=== PATIENT | male | born 1990 | race African-American/Black ===

== ENCOUNTER → 2016-06-04 | Outpatient (CLI) | payer OTHER ==
--- NOTE | 2016-06-04 08:52 | US ---
EXAMINATION TYPE: US abdomen complete DATE OF EXAM: 06/04/2016 8:32 AM COMPARISON: In pacs CT abdomen pelvis July 13, 2015 CLINICAL HISTORY: Elevated liver enzymes, occasional abdomen pain, obese patient. EXAM MEASUREMENTS: Liver Length: 16.8cm Gallbladder Wall: 0.2cm CBD: 0.4cm Spleen: 11.5cm Right Kidney: 10.5 x 5.2 x 5.8cm Left Kidney: 11.2 x 5.9 x 5.6cm TECHNOLOGIST IMPRESSION: Pancreas: obscured by overlying bowel gas Liver: Heterogeneously hyperechoic without intrahepatic ductal dilatation. Evaluation for focal blanca s is limited due to the heterogeneity. Gallbladder: wnl Evidence for sonographic Soliman's sign: no CBD: wnl Spleen: 1.7 x 1.2 x 1.6cm hypoechoic area isoechoic inferior to spleen presumed small splenule. C orrelates with CT. Right Kidney: wnl Left Kidney: visualized portions wnl, inferior pole limited by overlying bowel gas Upper IVC: wnl Abd Aorta: visualized portions wnl, mid and distal portions obscured by overlying bowel gas IMPRESSION: Suboptimal study, marked fatty infiltration of liver is redemonstrated which correlates w ith prior CT. Normal Values: Liver Length: < 16cm wnl, 17-18cm upper limits, >18cm enlarged Spleen Length = < 13cm Renal Length = 9 - 12cm GB Wall: < 0.3cm CBD: < 0.6cm or < 1.0cm post cholecystectomy
== END | disposition home or self-care (01) ==
LOC: RADUSWWP 07:54
PROVIDERS: ATTEND Family Medicine
DX: K76.0 Fatty (change of) liver, not elsewhere classified (principal)
CPT/HCPCS: 76700

== ENCOUNTER 2016-06-20 20:41 | Emergency (ER) | payer OTHER ==
[2016-06-20] MEDS ORDERED: KETOROLAC 30 MG/ML 1 ML VIAL IVP STA (21:19)
[2016-06-20] MEDS ORDERED: FAMOTIDINE 20 MG/2 ML VIAL IV STA (21:19)
[2016-06-20] MEDS ORDERED: ONDANSETRON 4 MG/2 ML VIAL IVP STA (21:19)
[2016-06-20] MEDS ORDERED: DICYCLOMINE 10 MG/ML 2 ML AMP IM STA (21:19)
[2016-06-20] MEDS ORDERED: SODIUM CHLORIDE 0.9% 1,000 ML IV STA (21:20)
--- NOTE | 2016-06-20 21:26 | ED ---
Nausea/Vomiting/Diarrhea HPI - General Chief complaint: Nausea/Vomiting/Diarrhea Stated complaint: NVD Time Seen by Provider: 06/20/16 21:08 Source: patient Mode of arrival: ambulatory Limitations: no limitations - History of Present Illness Initial comments: Patient is a 26-year-old male with history of diabetes presenting with nausea/ vomiting/diarrhea. Patient states this started last night. Patient has had 4 episodes of vomiting. He describes the vomiting as food in nature. Patient also having diarrhea; he describes 6 episodes of loose watery stool. Patient admits to sick contacts in the house. Patient was recently on a [employer] for upper resp infection. Patient denies travel. Patient does have concerned suspicious food. Patient admits to having raw sewage in his basement which they cleaned up. He denies fever, chills, chest pain, shortness breath. - Related Data Home Medications Medication Instructions Recorded Confirmed Aspirin EC [Ecotrin Low Dose] 81 mg PO HS 05/02/16 06/20/16 INSULIN LISPRO (humaLOG) [humaLOG See Protocol SQ AC-TID 05/02/16 06/20/16 (formulary)] Insulin Glargine [Lantus] 40 unit SQ HS 05/02/16 06/20/16 metFORMIN HCL 1,000 mg PO BID 05/02/16 06/20/16 Azithromycin [Zithromax Z-pack] See Taper PO DAILY 06/20/16 06/20/16 Previous Rx's Medication Instructions Recorded Atorvastatin Calcium [Lipitor] 20 mg PO DAILY #30 tab 07/14/15 Lisinopril [Zestril] 10 mg PO DAILY #30 tab 07/14/15 Doxycycline Monohydrate [Monodox] 100 mg PO Q12HR #28 cap 06/21/16 Allergies Allergy/AdvReac Type Severity Reaction Status Date / Time No Known Allergies Allergy Verified 06/20/16 22:09 Review of Systems ROS Statement: Those systems with pertinent positive or pertinent negative responses have been documented in the HPI. Constitutional: No fever and no chills. HENT: No congestion, no rhinorrhea and no sore throat. Eyes: No discharge and no redness. Respiratory: No cough and no shortness of breath. Cardiovascular: No chest pain and no palpitations. Gastrointestinal: +nausea, +vomiting, no abdominal pain and +diarrhea. Genitourinary: No dysuria and no hematuria. Musculoskeletal: No back pain and no arthralgias. Skin: No pallor and no rash. Neurological: No dizziness and No headaches. ROS Other: All systems not noted in ROS Statement are negative. Past Medical History Past Medical History: Diabetes Mellitus, Hypertension History of Any Multi-Drug Resistant Organisms: None Reported Past Surgical History: No Surgical Hx Reported Past Anesthesia/Blood Transfusion Reactions: No Reported Reaction Past Psychological History: No Psychological Hx Reported Smoking Status: Never smoker Past Alcohol Use History: None Reported Past Drug Use History: None Reported - Past Family History Father History Unknown: Yes General Exam - General Exam Comments Initial Comments: Constitutional: Patient appears well-developed and well-nourished. Warm to touch. Head: Normocephalic and atraumatic. Eyes: Conjunctivae and EOM are normal. Right eye exhibits no discharge. Left eye exhibits no discharge. +scleral icterus. Neck: Normal range of motion. Neck supple. Cardiovascular: Tachycardia. No murmur heard. Pulmonary/Chest: Effort normal and breath sounds normal. No respiratory distress. No wheezes. Abdominal: Soft. No distension. Diffuse tenderness. There is no rebound and no guarding. Musculoskeletal: Normal range of motion. No edema or tenderness. Neurological: Patient alert and oriented to person, place, and time. Skin: Skin is warm and dry. Not diaphoretic. Nursing notes and vitals reviewed. Limitations: no limitations Course Vital Signs 06/20/16 20:46 Temperature 101 F H Pulse Rate 122 H Respiratory 20 Rate Blood Pressure 123/68 O2 Sat by Pulse 98 Oximetry - Reevaluation(s) Reevaluation #1: 06/21/16 00:34 Patient with girlfriend at bedside and asked if we could disclose information with her present. Patient was given multiple opportunities to have discussion alone. Patient states it was okay to discuss results from his girlfriend. Discussed results with patient as concern for hepatitis A given raw sewage and nausea/vomiting/diarrhea with jaundice. Hepatitis panel was added to his blood work and he will follow-up on that. Patient also has concern for urinary tract infection with a history of STI's in the past. Patient is agreeable to STI prophylaxis. Urine culture, gonorrhea and chlamydia added onto lab results. He will follow up with. Medical Decision Making - Medical Decision Making Patient is a 26-year-old male presenting present with nausea/vomiting/diarrhea. Patient has risk factors of cleaning up raw sewage in his basement, recent antibiotics, sick contacts. Patient does exhibit jaundice of his eyes. Symptoms improved with normal saline, Zofran, Bentyl, Pepcid. Laboratory showed a hypomagnesemia which was replaced orally.CBC was unremarkable. Glucose was normal. Patient had a T bili of 3.1. With mild elevation of his ALT at 93. Patient states he's had elevations in the past which he's had ultrasounds. UA concerning for urinary tract infection. Prior urinalysis showed he has been positive for chlamydia. Unsure patient was treated. Patient is accepting of STI prophylaxis. We'll treat patient with doxycycline outpatient. Patient will follow up on hepatitis panel, urine culture, urine gonorrhea, and chlamydia. Prior to discharge, patient was resting comfortably in bed. Course of stay improved. Denies pain. Discussed physical exam and diagnostic tests with patient. Questions answered and patient is agreeable to discharge with close follow up with Primary Care Physician. Instructed to return to Emergency Department if symptoms worsen. - Lab Data Result diagrams: 06/20/16 22:31 06/20/16 22:31 Lab Results 06/20/16 06/20/16 06/20/16 Range/Units 22:15 22:18 22:31 WBC 7.4 (3.8-10.6) k/uL RBC 5.27 (4.30-5.90) m/uL Hgb 15.7 (13.0-17.5) gm/dL Hct 46.2 (39.0-53.0) % MCV 87.7 (80.0-100.0) fL MCH 29.9 (25.0-35.0) pg MCHC 34.1 (31.0-37.0) g/dL RDW 12.7 (11.5-15.5) % Plt Count 194 (150-450) k/uL Neutrophils % 77 % Lymphocytes % 13 % Monocytes % 5 % Eosinophils % 3 % Basophils % 0 % Neutrophils # 5.7 (1.3-7.7) k/uL Lymphocytes # 1.0 (1.0-4.8) k/uL Monocytes # 0.4 (0-1.0) k/uL Eosinophils # 0.2 (0-0.7) k/uL Basophils # 0.0 (0-0.2) k/uL Sodium (137-145) mmol/L Potassium (3.5-5.1) mmol/L Chloride (98-107) mmol/L Carbon Dioxide (22-30) mmol/L Anion Gap mmol/L BUN (9-20) mg/dL Creatinine (0.66-1.25) mg/dL Est GFR (MDRD) Af Amer (>60 ml/min/1.73 sqM) Est GFR (MDRD) Non-Af (>60 ml/min/1.73 sqM) Glucose (74-99) mg/dL POC Glucose (mg/dL) 95 (75-99) mg/dL POC Glu Internet Specialist ID Katie Ahmadi Calcium (8.4-10.2) mg/dL Magnesium (1.6-2.3) mg/dL Total Bilirubin (0.2-1.3) mg/dL AST (17-59) U/L ALT (21-72) U/L Alkaline Phosphatase (38-126) U/L Total Protein (6.3-8.2) g/dL Albumin (3.5-5.0) g/dL Lipase (23-300) U/L Urine Color Yellow Urine Appearance Clear (Clear) Urine pH 5.5 (5.0-8.0) Ur Specific [place] 1.025 (1.001-1.035) Urine Protein Trace H (Negative) Urine Glucose (UA) Negative (Negative) Urine Ketones Negative (Negative) Urine Blood Negative (Negative) Urine Nitrate Negative (Negative) Urine Bilirubin Negative (Negative) Urine Urobilinogen <2.0 (<2.0) mg/dL Ur Leukocyte Esterase Small H (Negative) Urine RBC 1 (0-5) /hpf Urine WBC 27 H (0-5) /hpf Urine WBC Clumps Rare H (None) /hpf Ur Squamous Epith Cells 3 (0-4) /hpf Amorphous Sediment Rare H (None) /hpf Urine Mucus Occasional H (None) /hpf 06/20/16 Range/Units 22:31 WBC (3.8-10.6) k/uL RBC (4.30-5.90) m/uL Hgb (13.0-17.5) gm/dL Hct (39.0-53.0) % MCV (80.0-100.0) fL MCH (25.0-35.0) pg MCHC (31.0-37.0) g/dL RDW (11.5-15.5) % Plt Count (150-450) k/uL Neutrophils % % Lymphocytes % % Monocytes % % Eosinophils % % Basophils % % Neutrophils # (1.3-7.7) k/uL Lymphocytes # (1.0-4.8) k/uL Monocytes # (0-1.0) k/uL Eosinophils # (0-0.7) k/uL Basophils # (0-0.2) k/uL Sodium 137 (137-145) mmol/L Potassium 3.7 (3.5-5.1) mmol/L Chloride 102 (98-107) mmol/L Carbon Dioxide 21 L (22-30) mmol/L Anion Gap 14 mmol/L BUN 9 (9-20) mg/dL Creatinine 0.91 (0.66-1.25) mg/dL Est GFR (MDRD) Af Amer >60 (>60 ml/min/1.73 sqM) Est GFR (MDRD) Non-Af >60 (>60 ml/min/1.73 sqM) Glucose 105 H (74-99) mg/dL POC Glucose (mg/dL) (75-99) mg/dL POC Glu Internet Specialist ID Calcium 8.6 (8.4-10.2) mg/dL Magnesium 1.5 L (1.6-2.3) mg/dL Total Bilirubin 3.1 H (0.2-1.3) mg/dL AST 27 (17-59) U/L ALT 93 H (21-72) U/L Alkaline Phosphatase 46 (38-126) U/L Total Protein 7.0 (6.3-8.2) g/dL Albumin 4.2 (3.5-5.0) g/dL Lipase 26 (23-300) U/L Urine Color Urine Appearance (Clear) Urine pH (5.0-8.0) Ur Specific [place] (1.001-1.035) Urine Protein (Negative) Urine Glucose (UA) (Negative) Urine Ketones (Negative) Urine Blood (Negative) Urine Nitrate (Negative) Urine Bilirubin (Negative) Urine Urobilinogen (<2.0) mg/dL Ur Leukocyte Esterase (Negative) Urine RBC (0-5) /hpf Urine WBC (0-5) /hpf Urine WBC Clumps (None) /hpf Ur Squamous Epith Cells (0-4) /hpf Amorphous Sediment (None) /hpf Urine Mucus (None) /hpf Disposition Clinical Impression: Jaundice, Concern about STD in male without diagnosis, Nausea vomiting and diarrhea, Hypomagnesemia Disposition: HOME SELF-CARE Condition: Good Instructions: Acute Nausea and Vomiting (ED), Acute Diarrhea (ED) Prescriptions: Doxycycline Monohydrate [Monodox] 100 mg PO Q12HR #28 cap Referrals: Soumya Petty MD [Primary Care Provider] - 1-2 days
[2016-06-20] MEDS: SODIUM CHLORIDE 0.9% 1,000 ML IV STA (22:08)
[2016-06-20 22:20] LABS: Glucose,Whole Blood 95 mg/dL (75-99)
[2016-06-20 22:48] LABS: Basophils % (A) 0 %; CH 30.1; CHCM 34.5; Eosinophils # (A) 0.2 k/uL (0-0.7); Eosinophils % (A) 3 %; HCT 46.2 % (39.0-53.0); HDW 2.91; HGB 15.7 gm/dL (13.0-17.5); Luc # (Auto) 0.07; Luc % (Auto) 1; Lymphocytes % (A) 13 %; MCH 29.9 pg (25.0-35.0); MCHC 34.1 g/dL (31.0-37.0); MCV 87.7 fL (80.0-100.0); Mean Platelet Volume 7.9; Monocytes # (A) 0.4 k/uL (0-1.0); Monocytes % (A) 5 %; Neutrophils # (A) 5.7 k/uL (1.3-7.7); Neutrophils % (A) 77 %; RBC 5.27 m/uL (4.30-5.90); RDW 12.7 % (11.5-15.5); WBC 7.4 k/uL (3.8-10.6); WBC (Perox) 7.33
[2016-06-20 22:49] LABS: Amorphous Sediment,Urine Rare /hpf; Appearance,Urine Clear (Clear); Bilirubin,Urine Negative (Negative); Glucose,Urine (UA) Negative (Negative); Ketones,Urine Negative (Negative); Leukocyte Esterase,Urine Small (Negative); Mucus,Urine Occasional /hpf; Nitrite,Urine Negative (Negative); PH, Urine 5.5 (5.0-8.0); Particle Count 3475; Protein,Urine Trace (Negative); RBC,Urine 1 /hpf (0-5); Specific Gravity,Urine 1.025 (1.001-1.035); Squamous Epithelial Cell,Urine 3 /hpf (0-4); UA Billing (MACRO vs. MICRO) MICRO; Urobilinogen,Urine <2.0 mg/dL (<2.0); WBC,Urine 27 /hpf (0-5)
[2016-06-20 22:55] LABS: ALT 93 U/L (21-72); AST 27 U/L (17-59); Alkaline Phosphatase 46 U/L (38-126); Anion Gap 14 mmol/L; Blood Urea Nitrogen 9 mg/dL (9-20); Calcium 8.6 mg/dL (8.4-10.2); Carbon Dioxide 21 mmol/L (22-30); Chloride 102 mmol/L (98-107); Glucose 105 mg/dL (74-99); Magnesium 1.5 mg/dL (1.6-2.3); Non-African American GFR(MDRD) >60 (>60 ml/min/1.73 sqM); Potassium 3.7 mmol/L (3.5-5.1); Sodium 137 mmol/L (137-145); Total Bilirubin 3.1 mg/dL (0.2-1.3)
[2016-06-21] MEDS ORDERED: MAGNESIUM OXIDE 400 MG TAB PO STA (00:21)
[2016-06-21] MEDS ORDERED: AZITHROMYCIN 500 MG TAB PO STA (00:31)
[2016-06-21] MEDS ORDERED: cefTRIAXone 250 MG VIAL IM STA (00:31)
[2016-06-21 01:32] VITALS: BP 116/72; PULSE 82; RESP 18; TEMP 96.5
[2016-06-21 05:50] LABS: Hepatitis B Surface Ag Index 0.05
[2016-06-21 05:56] LABS: Hepatitis B Core IgM Index 0.03
[2016-06-21 06:07] LABS: Hepatitis C Virus IgG Index 0.03
[2016-06-21 06:11] LABS: Hepatitis C Virus IgG Ab Negative (Negative)
== END 2016-06-21 01:31 | disposition home or self-care (01) ==
LOC: EC 20:41
DX: R11.2 Nausea with vomiting, unspecified (principal); R19.7 Diarrhea, unspecified; R17 Unspecified jaundice; E83.42 Hypomagnesemia; E11.9 Type 2 diabetes mellitus without complications; Z79.82 Long term (current) use of aspirin; Z79.4 Long term (current) use of insulin; Z79.84 Long term (current) use of oral hypoglycemic drugs; Z77.111 Contact with and (suspected) exposure to water pollution
CPT/HCPCS: 36415; 80053; 83690; 83735; 85025; 81001; 96372 ×2; 96374; 96375 ×2; 96361 ×2; 99284; J0500; J2405; J1885; 80074; 87086; 87491; 87591

== ENCOUNTER 2018-07-03 07:33 | Emergency (ER) | payer OTHER ==
--- NOTE | 2018-07-03 08:25 | ED ---
Chest Pain HPI - General Chief Complaint: Chest Pain Stated Complaint: CHEST PAIN Time Seen by Provider: 07/03/18 07:57 Source: patient Mode of arrival: ambulatory Limitations: no limitations - History of Present Illness MD Complaint: chest pain (Left-sided chest heaviness) -: days(s) (3) Onset: during rest, awoke with symptoms Pain Location: left chest Pain Radiation: none Severity: mild Severity scale (1-10): 3 Quality: tightness, heaviness Consistency: constant, now resolved Improves With: nothing Worsens With: nothing Anginal Symptoms: other (None) Other Symptoms: other (none) Treatments Prior to Arrival: none - Related Data Home Medications Medication Instructions Recorded Confirmed Aspirin EC [Ecotrin Low Dose] 81 mg PO HS 05/02/16 07/03/18 INSULIN LISPRO (humaLOG) [humaLOG] See Protocol SQ AC-TID 05/02/16 07/03/18 Insulin Glargine [Lantus] 64 unit SQ HS 05/02/16 07/03/18 Diabetic Otc Vitamin Pack 1 pack PO DAILY 07/03/18 07/03/18 Multivitamins, Thera [Multivitamin 1 tab PO DAILY 07/03/18 07/03/18 (formulary)] [place]-3 Fatty Acids/Fish Oil [Fish 1 cap PO DAILY 07/03/18 07/03/18 Oil 1,000 mg Softgel] Previous Rx's Medication Instructions Recorded Lisinopril [Zestril] 10 mg PO DAILY #30 tab 07/14/15 Allergies Allergy/AdvReac Type Severity Reaction Status Date / Time No Known Allergies Allergy Verified 07/03/18 07:55 Review of Systems ROS Statement: Those systems with pertinent positive or pertinent negative responses have been documented in the HPI. ROS Other: All systems not noted in ROS Statement are negative. EKG Findings - EKG Comments: EKG Findings:: EKG shows normal sinus rhythm rate of 74, ID 144, QRS 86, QTc 395 Past Medical History Past Medical History: Diabetes Mellitus, Hypertension History of Any Multi-Drug Resistant Organisms: None Reported Past Surgical History: No Surgical Hx Reported Past Anesthesia/Blood Transfusion Reactions: No Reported Reaction Past Psychological History: No Psychological Hx Reported Smoking Status: Never smoker Past Alcohol Use History: None Reported Past Drug Use History: None Reported - Past Family History Father History Unknown: Yes General Exam Limitations: no limitations General appearance: alert, in no apparent distress Head exam: Present: atraumatic, normocephalic, normal inspection Eye exam: Present: normal appearance, PERRL, EOMI. Absent: scleral icterus, conjunctival injection, periorbital swelling ENT exam: Present: normal exam, mucous membranes moist Neck exam: Present: normal inspection. Absent: tenderness, meningismus, lymphadenopathy Respiratory exam: Present: normal lung sounds bilaterally. Absent: respiratory distress, wheezes, rales, rhonchi, stridor Cardiovascular Exam: Present: regular rate, normal rhythm, normal heart sounds. Absent: systolic murmur, diastolic murmur, rubs, gallop, clicks GI/Abdominal exam: Present: soft, normal bowel sounds. Absent: distended, tenderness, guarding, rebound, rigid Extremities exam: Present: normal inspection, full ROM, normal capillary refill. Absent: tenderness, pedal edema, joint swelling, calf tenderness Back exam: Present: normal inspection Neurological exam: Present: alert, oriented X3, CN II-XII intact Psychiatric exam: Present: normal affect, normal mood Skin exam: Present: warm, dry, intact, normal color. Absent: rash Course Vital Signs 07/03/18 07/03/18 07/03/18 07:38 08:16 08:30 Temperature 98 F Pulse Rate 73 77 88 Respiratory 18 15 19 Rate Blood Pressure 109/74 126/89 O2 Sat by Pulse 99 96 96 Oximetry 07/03/18 09:44 Temperature 97.9 F Pulse Rate 80 Respiratory 16 Rate Blood Pressure 125/91 O2 Sat by Pulse 97 Oximetry Disposition Clinical Impression: Chest pain Disposition: HOME SELF-CARE Condition: Good Instructions (If sedation given, give patient instructions): Chest Pain (ED) Is patient prescribed a controlled substance at d/c from ED?: No Referrals: Olive Becker MD [Primary Care Provider] - 1-2 days
[2018-07-03] MEDS: SODIUM CHLORIDE 0.9% 500 ML 500 ML IV STA (08:26)
[2018-07-03] MEDS: SODIUM CHLORIDE 0.9% 1,000 ML IV STA (08:26)
--- NOTE | 2018-07-03 08:51 | XR ---
EXAMINATION TYPE: XR chest 2V DATE OF EXAM: 07/03/2018 COMPARISON: 03/10/2017 HISTORY: Chest pain for 2 days TECHNIQUE: Frontal and lateral views of the chest are obtained. FINDINGS: There is no focal air space opacity, pleural effusion, or pneumothorax seen. The cardiac silhouette size is upper limits of normal in size. The osseous structures are intact. Mild multilev el degenerative change of the thoracic spine is seen. IMPRESSION: No acute cardiopulmonary process.
[2018-07-03 08:54] LABS: Basophils % (A) 1 %; Eosinophils # (A) 0.2 k/uL (0-0.7); Eosinophils % (A) 3 %; HCT 47.3 % (39.0-53.0); HGB 15.8 gm/dL (13.0-17.5); Lymphocytes % (A) 35 %; MCH 29.2 pg (25.0-35.0); MCHC 33.3 g/dL (31.0-37.0); MCV 87.5 fL (80.0-100.0); Monocytes # (A) 0.3 k/uL (0-1.0); Monocytes % (A) 6 %; Neutrophils # (A) 3.1 k/uL (1.3-7.7); Neutrophils % (A) 54 %; Platelet Count 187 k/uL (150-450); RDW 12.7 % (11.5-15.5); WBC 5.7 k/uL (3.8-10.6)
[2018-07-03 09:07] LABS: Partial Thromboplastin Time 24.8 sec (22.0-30.0); Prothrombin Time 10.7 sec (9.0-12.0)
[2018-07-03 09:08] LABS: ALT 69 U/L (21-72); AST 27 U/L (17-59); Albumin 4.2 g/dL (3.5-5.0); Alkaline Phosphatase 60 U/L (38-126); Anion Gap 9 mmol/L; Blood Urea Nitrogen 12 mg/dL (9-20); Calcium 9.4 mg/dL (8.4-10.2); Carbon Dioxide 24 mmol/L (22-30); Chloride 107 mmol/L (98-107); Glucose 205 mg/dL (74-99); Lipase 53 U/L (23-300); Magnesium 1.9 mg/dL (1.6-2.3); Potassium 4.6 mmol/L (3.5-5.1); Sodium 140 mmol/L (137-145); Total Bilirubin 1.8 mg/dL (0.2-1.3); Total Protein 6.9 g/dL (6.3-8.2)
[2018-07-03 09:10] LABS: D-Dimer <0.17 mg/L FEU (<0.60)
[2018-07-03 09:24] LABS: Creatine Kinase 244 U/L (55-170)
[2018-07-03 09:37] LABS: Creatine Kinase MB 0.8 ng/mL (0.0-2.4); Troponin I <0.012 ng/mL (0.000-0.034)
[2018-07-03 09:45] VITALS: BP 125/91; PULSE 80; RESP 16; TEMP 97.9
[2018-07-03] MEDS: MORPHINE SULFATE 4 MG/ML SYRINGE IV STA (09:59)
[2018-07-03] MEDS: KETOROLAC 30 MG/ML 1 ML VIAL IVP STA (09:59)
== END 2018-07-03 09:50 | disposition home or self-care (01) ==
LOC: EC 07:33
DX: R07.89 Other chest pain (principal); E11.9 Type 2 diabetes mellitus without complications; I10 Essential (primary) hypertension; Z79.4 Long term (current) use of insulin; Z79.899 Other long term (current) drug therapy; Z79.82 Long term (current) use of aspirin; Z53.29 Procedure and treatment not carried out because of patient's decision for other reasons
CPT/HCPCS: 36415; 71046; 80053; 82550; 82553; 83690; 83735; 83880; 84484; 85025; 85379; 85610; 85730; 96360; 99285

== ENCOUNTER 2018-08-14 16:45 | Emergency (ER) | payer OTHER ==
[2018-08-14 16:55] VITALS: BP 159/107; PULSE 82; RESP 16; TEMP 97.4
--- NOTE | 2018-08-14 17:26 | ED ---
General Adult HPI - General Chief complaint: Urogenital Stated complaint: poss pulled muscle-[facility] Time Seen by Provider: 08/14/18 16:50 Source: patient Mode of arrival: ambulatory Limitations: no limitations - History of Present Illness Initial comments: 28-year-old male patient passed no history of diabetes, hypertension presents to ED for evaluation of possible muscular skeletal strain. 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 Patient additionally complains of some right inguinal strain. Patient reports that he has pain in this region with range of motion, exertion. She denies any pain at rest. Patient denies any other complaints. Patient denies any nausea vomiting diarrhea, fevers chills, any other symptoms. Systemic: Pt denies fatigue, fever/chills, rash. Pt denies weakness, night sweats, weight loss. Neuro: Pt denies headache, visual disturbances, syncope or pre-syncope. HEENT: Pt denies ocular discharge or irritation, otalgia, rhinorrhea, pharyngitis or notable lymphadenopathy. Cardiopulmonary: Pt denies chest pain, SOB, heart palpitations, dyspnea on exertion. Abdominal/GI: Pt denies abdominal pain, n/v/d. : Pt denies dysuria, burning w/ urination, frequency/urgency. Denies new onset urinary or bowel incontinence. MSK: Pt denies myalgia, loss of strength or function in extremities. Neuro: Pt denies new onset weakness, paresthesias. - Related Data Home Medications Medication Instructions Recorded Confirmed Aspirin EC [Ecotrin Low Dose] 81 mg PO HS 05/02/16 07/03/18 INSULIN LISPRO (humaLOG) [humaLOG] See Protocol SQ AC-TID 05/02/16 07/03/18 Insulin Glargine [Lantus] 64 unit SQ HS 05/02/16 07/03/18 Diabetic Otc Vitamin Pack 1 pack PO DAILY 07/03/18 07/03/18 Multivitamins, Thera [Multivitamin 1 tab PO DAILY 07/03/18 07/03/18 (formulary)] [place]-3 Fatty Acids/Fish Oil [Fish 1 cap PO DAILY 07/03/18 07/03/18 Oil 1,000 mg Softgel] Previous Rx's Medication Instructions Recorded Lisinopril [Zestril] 10 mg PO DAILY #30 tab 07/14/15 Allergies Allergy/AdvReac Type Severity Reaction Status Date / Time No Known Allergies Allergy Verified 08/14/18 16:54 Review of Systems ROS Statement: Those systems with pertinent positive or pertinent negative responses have been documented in the HPI. ROS Other: All systems not noted in ROS Statement are negative. Past Medical History Past Medical History: Diabetes Mellitus, Hypertension History of Any Multi-Drug Resistant Organisms: None Reported Past Surgical History: No Surgical Hx Reported Past Anesthesia/Blood Transfusion Reactions: No Reported Reaction Past Psychological History: No Psychological Hx Reported Smoking Status: Never smoker Past Alcohol Use History: None Reported Past Drug Use History: None Reported - Past Family History Father History Unknown: Yes General Exam - General Exam Comments Initial Comments: Constitutional: NAD, AOX3, Pt has pleasant affect. HEENT: NC/AT, trachea midline, neck supple, no lymphadenopathy. Posterior pharynx non erythematous, without exudates. External ears appear normal, without discharge. Mucous membranes moist. Eyes PERRLA, EOM intact. There is no scleral icterus. No pallor noted. Cardiopulmonary: RRR, no murmurs, rubs or gallops, no JVD noted. Lungs CTAB in anterior and posterior martinez. No peripheral edema. Abdominal exam: Abdomen soft and non-distended. Abdomen non-tender to palpation in all 4 quadrants. Bowel sounds active in LLQ. No hepatosplenomegaly. No ecchy mosis. No masses. Neuro: CN II-XII grossly intact. No nuchal rigidity. MSK: Right abdominal strain reproducible by twisting motion. Nontender. No masses. No posterior calf tenderness bilaterally, homans sign negative bilaterally. Posterior tibialis and radial pulse +2 bilaterally. Sensation intact in upper and lower extremities. Full active ROM in upper and lower extremities, 5/5 stregnth. : Testicles nontender to palpation bilaterally. No masses. No hernia. No lesions or discharge. No high riding testicle. Cremasteric reflex intact. Limitations: no limitations Course Vital Signs 08/14/18 16:52 Temperature 97.4 F L Pulse Rate 82 Respiratory 16 Rate Blood Pressure 159/107 O2 Sat by Pulse 97 Oximetry Medical Decision Making - Medical Decision Making 28-year-old male patient passed no history of diabetes, hypertension presents to ED for evaluation of possible muscular skeletal strain. 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 Patient additionally complains of some right inguinal strain. Patient reports that he has pain in this region with range of motion, exertion. She denies any pain at rest. Patient denies any other complaints. Patient denies any nausea vomiting diarrhea, fevers chills, any other symptoms. Patient vital signs stable, afebrile. Physical exam displayed: Right abdominal strain reproducible by twisting motion. Nontender. No masses.Testicles nontender to palpation bilaterally. No masses. No hernia. No lesions or discharge. No high riding testicle. Cremasteric reflex intact. Patient to use nonsteroidal anti-inflammatories as needed. Patient to follow up with primary care provider for clearance to return to work. Patient to return to ER if descends symptoms develop or condition worsens in any way. Return precautions discussed, patient was understanding. Case discussed with Dr. Mitchell. Disposition Clinical Impression: Abdominal muscle strain, Musculoskeletal strain Disposition: HOME SELF-CARE Condition: Stable Instructions (If sedation given, give patient instructions): Musculoskeletal Pain (ED) Additional Instructions: Patient to adhere to previously discussed treatment plan and will take medication(s) as directed. Patient to follow up with PCP in 1-2 days. Patient to return to ED if symptoms do not improve. Please see his nonsteroidal anti-inflammatories for pain. Please follow-up with primary care physician or occupational health frequency returned to work. Please monitor signs or symptoms return to ER if condition worsens in any way. Is patient prescribed a controlled substance at d/c from ED?: No Referrals: Olive Becker MD [Primary Care Provider] - 1-2 days
== END 2018-08-14 18:30 | disposition home or self-care (01) ==
LOC: EC 16:45
DX: S39.011A Strain of muscle, fascia and tendon of abdomen, initial encounter (principal); E11.9 Type 2 diabetes mellitus without complications; I10 Essential (primary) hypertension; Z79.4 Long term (current) use of insulin; Z79.82 Long term (current) use of aspirin; Z79.899 Other long term (current) drug therapy; X50.0XXA Overexertion from strenuous movement or load, initial encounter; Y92.69 Other specified industrial and construction area as the place of occurrence of the external cause; Y99.0 Civilian activity done for income or pay
CPT/HCPCS: 99282

== ENCOUNTER 2022-05-20 10:48 | Emergency (ER) | payer OTHER ==
[2022-05-20] MEDS ORDERED: KETOROLAC 15 MG/ML 1 ML VIAL IVP STA (12:51)
[2022-05-20] MEDS ORDERED: ACETAMINOPHEN TAB 500 MG TAB PO STA (12:51)
[2022-05-20] MEDS ORDERED: SODIUM CHLORIDE 0.9% 1,000 ML IV STA (12:51)
--- NOTE | 2022-05-20 12:53 | ED ---
General Adult HPI - General Chief complaint: Extremity Injury, Lower Stated complaint: lt leg swelling Time Seen by Provider: 05/20/22 12:32 Source: patient, RN notes reviewed, old records reviewed Mode of arrival: ambulatory Limitations: no limitations - History of Present Illness Initial comments: Patient is a 32-year-old male with past medical history remarkable for diet- controlled diabetes, who presents emergency Department complaining of left lower extremity pain. Has noticed it over the last few days, approximately 3. Has been having left lower extremity thigh swelling, pain that extends from the mid thigh down to the knee, located along the medial aspect of the leg. Some mild warmth. Some mild erythema. No shortness of breath. No lower extremity swelling beyond the point. No history of DVTs or blood clots. No recent long distance travel. No shortness of breath, chest pain, abdominal pain, nausea, vomiting. States he has had less than appetite. Has noticed subjective fevers at home. Presents for further evaluation at this time. - Related Data Previous Rx's Medication Instructions Recorded Cephalexin [Keflex] 500 mg PO BID 7 Days #14 cap 05/20/22 Sulfamethoxazole/Trimethoprim 1 each PO BID 7 Days #14 tablet 05/20/22 [Bactrim DS 800-160 mg] Allergies Allergy/AdvReac Type Severity Reaction Status Date / Time No Known Allergies Allergy Verified 05/20/22 14:28 Review of Systems ROS Statement: Those systems with pertinent positive or pertinent negative responses have been documented in the HPI. Review of Systems: CONST: Denies fever EYES: Denies blurry vision ENT: Denies nasal congestion C/V: Denies Chest pain RESP: Denies shortness of breath GI: Denies abdominal pain : Denies dysuria SKIN: Denies rash. MSK: Endorses leg pain NEURO: Denies headache ROS Other: All systems not noted in ROS Statement are negative. Past Medical History Past Medical History: Diabetes Mellitus, Hypertension History of Any Multi-Drug Resistant Organisms: None Reported Past Surgical History: No Surgical Hx Reported Past Anesthesia/Blood Transfusion Reactions: No Reported Reaction Past Psychological History: No Psychological Hx Reported Smoking Status: Never smoker Past Alcohol Use History: Occasional Past Drug Use History: None Reported - Past Family History Father History Unknown: Yes General Exam - General Exam Comments Initial Comments: General: Appears in no acute distress. Low-grade fever. HEAD: Normal with no signs of head trauma. EYES: EOMI ENT: Hearing grossly intact, normal oropharynx. Moist mucous membranes. RESPIRATORY: Clear breath sounds bilaterally. No wheezes, rales, or rhonchi. C/V: Regular rate and rhythm. S1 and S2 auscultated, no edema, peripheral pulses 2+ and intact throughout ABD: Abd is soft, nontender, nondistended EXT: Normal range of motion, no obvious deformity SKIN: Patient has an erythematous, indurated area located over the superior medial aspect of the left thigh. Some radiation of the induration down the medial aspect of the left side. No perineal involvement. No groin involvement. No obvious fluctuance appreciated. No calf edema. NEURO: Alert and oriented 4. No focal deficits. Limitations: no limitations Course Vital Signs 05/20/22 05/20/22 05/20/22 11:35 12:33 13:59 Temperature 99.2 F 100.7 F H 99.3 F Pulse Rate 108 H 94 Respiratory 18 17 Rate Blood Pressure 147/84 137/90 O2 Sat by Pulse 96 97 Oximetry 05/20/22 15:03 Temperature 99.3 F Pulse Rate 96 Respiratory 18 Rate Blood Pressure 146/86 O2 Sat by Pulse 95 Oximetry Medical Decision Making - Medical Decision Making Based on patient's presentation and physical exam, I'm concerned for possible infectious versus DVT in the patient's left lower extremity. Does have a low- grade fever. We will obtain basic laboratory studies, administer antipyretics, 19 ultrasound imaging the left lower extremity. Patient was in agreement this plan. Vital signs within acceptable limits other than fever. We will continue to monitor. Patient's laboratory studies are remarkable for leukocytosis of 22. The remainder the labs are unremarkable including normal blood sugar level. Venous duplex ultrasound revealed no evidence of DVT. Leg ultrasound revealed no evidence of abscess but findings consistent with cellulitis. I discussed the workup with the patient. I did offer him admission versus discharge home but he would like to go home at this time. Strict return precautions were discussed. He will be started on antibiotics for cellulitis. He was in agreement this plan. I will provide the patient with a prescription for Bactrim, Keflex. I instructed the patient to follow up with their PCP in the next 1-3 days. I explained that the patient should return to the emergency department if they experience any worsening symptoms. Strict return precautions were discussed with the patient. The patient expressed understanding of these instructions. I answered all quest ions that the patient had. The patient was discharged home in good condition with their prescriptions and follow up information. - Lab Data Result diagrams: 05/20/22 12:54 05/20/22 12:54 Lab Results 05/20/22 05/20/22 05/20/22 Range/Units 12:54 12:54 12:54 WBC 22.9 H (3.8-10.6) k/uL RBC 5.08 (4.30-5.90) m/uL Hgb 15.9 (13.0-17.5) gm/dL Hct 44.1 (39.0-53.0) % MCV 86.9 (80.0-100.0) fL MCH 31.3 (25.0-35.0) pg MCHC 36.0 (31.0-37.0) g/dL RDW 11.9 (11.5-15.5) % Plt Count 181 (150-450) k/uL MPV 8.3 Neutrophils % 85 % Lymphocytes % 6 % Monocytes % 6 % Eosinophils % 1 % Basophils % 1 % Neutrophils # 19.6 H (1.3-7.7) k/uL Lymphocytes # 1.4 (1.0-4.8) k/uL Monocytes # 1.3 H (0-1.0) k/uL Eosinophils # 0.2 (0-0.7) k/uL Basophils # 0.2 (0-0.2) k/uL Manual Slide Review Performed RBC Morphology Normal Sodium 135 L (137-145) mmol/L Potassium 3.9 (3.5-5.1) mmol/L Chloride 99 (98-107) mmol/L Carbon Dioxide 26 (22-30) mmol/L Anion Gap 10 mmol/L BUN 11 (9-20) mg/dL Creatinine 0.79 (0.66-1.25) mg/dL Est GFR (CKD-EPI)AfAm >90 (>60 ml/min/1.73 sqM) Est GFR (CKD-EPI)NonAf >90 (>60 ml/min/1.73 sqM) Glucose 178 H (74-99) mg/dL Plasma Lactic Acid Govind 1.2 (0.7-2.0) mmol/L Calcium 8.8 (8.4-10.2) mg/dL Disposition Clinical Impression: Cellulitis Disposition: HOME SELF-CARE Condition: Good Instructions (If sedation given, give patient instructions): Cellulitis (ED) Prescriptions: Sulfamethoxazole/Trimethoprim [Bactrim DS 800-160 mg] 1 each PO BID 7 Days #14 tablet Cephalexin [Keflex] 500 mg PO BID 7 Days #14 cap Is patient prescribed a controlled substance at d/c from ED?: No Referrals: None,Stated [Primary Care Provider] - 1-2 days Time of Disposition: 14:35
[2022-05-20 13:02] LABS: Basophils # (A) 0.2 k/uL (0-0.2); Basophils % (A) 1 %; Eosinophils # (A) 0.2 k/uL (0-0.7); Eosinophils % (A) 1 %; HCT 44.1 % (39.0-53.0); HGB 15.9 gm/dL (13.0-17.5); Lymphocytes # (A) 1.4 k/uL (1.0-4.8); Lymphocytes % (A) 6 %; MCH 31.3 pg (25.0-35.0); MCV 86.9 fL (80.0-100.0); Mean Platelet Volume 8.3; Monocytes # (A) 1.3 k/uL (0-1.0); Monocytes % (A) 6 %; Neutrophils # (A) 19.6 k/uL (1.3-7.7); Neutrophils % (A) 85 %; Platelet Count 181 k/uL (150-450); RBC 5.08 m/uL (4.30-5.90); RDW 11.9 % (11.5-15.5); WBC 22.9 k/uL (3.8-10.6)
[2022-05-20 13:18] LABS: African American GFR (CKD) >90 (>60 ml/min/1.73 sqM); Anion Gap 10 mmol/L; Blood Urea Nitrogen 11 mg/dL (9-20); Calcium 8.8 mg/dL (8.4-10.2); Carbon Dioxide 26 mmol/L (22-30); Chloride 99 mmol/L (98-107); Glucose 178 mg/dL (74-99); Non-African American GFR(CKD) >90 (>60 ml/min/1.73 sqM); Potassium 3.9 mmol/L (3.5-5.1); Sodium 135 mmol/L (137-145)
[2022-05-20 13:36] LABS: RBC Morphology Normal
[2022-05-20 13:59] VITALS: TEMP 99.3
--- NOTE | 2022-05-20 14:07 | US ---
EXAMINATION TYPE: US venous doppler duplex LE LT DATE OF EXAM: 05/20/2022 1:50 PM COMPARISON: NONE CLINICAL HISTORY: 32-year-old male eval for DVT. SIDE PERFORMED: Left TECHNIQUE: The lower extremity deep venous system is examined utilizing real time linear array sonog beto with graded compression, doppler sonography and color-flow sonography. VESSELS IMAGED: Common Femoral Vein Deep Femoral Vein Greater Saphenous Vein * Femoral Vein Popliteal Vein Small Saphenous Vein * Proximal Calf Veins (* superficial vessels) Licensing Coordinator notes: Patient of large body habitus with focal swelling at the upper thigh Left Leg: Negative for DVT as seen. Unable to visualize femoral vein for compression views due to edema/ depth/and swelling. IMPRESSION: Limited assessment at the level of the femoral vein particularly for compression. Otherw ise, no evidence for DVT within the left lower extremity imaged down to the upper calf.
--- NOTE | 2022-05-20 14:19 | US ---
EXAMINATION TYPE: US extremity nonvasc mass LT DATE OF EXAM: 05/20/2022 COMPARISON: NONE CLINICAL HISTORY: eval for abscess/infection. Technique: Grayscale and color Doppler imaging of patient's area of concern. FINDINGS: In the area of patient's redness and swelling is streaky subcutaneous edematous tissue. No evidence for organizing fluid collection in the superficial [id number]. IMPRESSION: Subcutaneous edema without evidence for organizing fluid collection.
[2022-05-20] MEDS ORDERED: SULFAMETHOX-TMP 800-160MG 1 EACH TAB PO STA (14:52)
[2022-05-20] MEDS ORDERED: CEPHALEXIN 500 MG CAP PO STA (14:52)
[2022-05-20 15:04] VITALS: BP 146/86; PULSE 96; RESP 18
== END 2022-05-20 15:04 | disposition home or self-care (01) ==
LOC: EC 10:48
DX: L03.116 Cellulitis of left lower limb (principal); I10 Essential (primary) hypertension; E11.9 Type 2 diabetes mellitus without complications
CPT/HCPCS: 36415; 80048; 83605; 85025; 93971; 76882; 99284; 96374; 96361; J1885

== ENCOUNTER 2022-05-25 10:04 | Inpatient (IN) | payer OTHER ==
--- NOTE | 2022-05-25 10:50 | ED ---
Skin/Abscess/FB HPI - General Chief complaint: Extremity Problem,Nontraumatic Stated complaint: Cellulitis L leg Time Seen by Provider: 05/25/22 10:33 Source: patient, RN notes reviewed Mode of arrival: ambulatory Limitations: no limitations - History of Present Illness Initial comments: This is a 32-year-old male who presents to the emergency department for a progressive left leg infection. Patient was evaluated here on 05/20 for an infection to the left leg. He was given a prescription for Bactrim and Keflex. States that symptoms are continuing to worsen. Yesterday, this "exploded", and he had a lot of drainage from the site. However, afterwards it seemed to get worse. He is noticing progressive swelling around the leg and traveling up into his groin. States that it is also very tender to the touch. Denies any fevers or chills. Denies any fevers, chills, sore throat, cough, dyspnea, chest pain, palpitations, abdominal pain, nausea, vomiting, diarrhea, back pain, or headaches. MD complaint: abscess/boil Onset/Timin -: days(s) Tetanus Up to Date: yes Location: [facility] Treatments Prior to Arrival: antibiotic - Related Data Home Medications Medication Instructions Recorded Confirmed Cholecalciferol [Vitamin D3 (10 10 mcg PO DAILY 05/25/22 05/25/22 Mcg = 400 Iu)] Multivitamins, Thera [Multivitamin 1 tab PO DAILY 05/25/22 05/25/22 (formulary)] Thiamine [Vitamin B-1] 50 mg PO DAILY 05/25/22 05/25/22 Previous Rx's Medication Instructions Recorded Cephalexin [Keflex] 500 mg PO BID 7 Days #14 cap 05/20/22 Sulfamethoxazole/Trimethoprim 1 each PO BID 7 Days #14 tablet 05/20/22 [Bactrim DS 800-160 mg] Allergies Allergy/AdvReac Type Severity Reaction Status Date / Time No Known Allergies Allergy Verified 05/25/22 11:48 Review of Systems ROS Statement: Those systems with pertinent positive or pertinent negative responses have been documented in the HPI. ROS Other: All systems not noted in ROS Statement are negative. Past Medical History Past Medical History: Diabetes Mellitus, Hypertension History of Any Multi-Drug Resistant Organisms: None Reported Past Surgical History: No Surgical Hx Reported Past Anesthesia/Blood Transfusion Reactions: No Reported Reaction Past Psychological History: No Psychological Hx Reported Smoking Status: Never smoker Past Alcohol Use History: Occasional Past Drug Use History: None Reported - Past Family History Father History Unknown: Yes General Exam Limitations: no limitations General appearance: alert, in no apparent distress Head exam: Present: atraumatic, normocephalic, normal inspection Respiratory exam: Present: normal lung sounds bilaterally. Absent: respiratory distress, wheezes, rales, rhonchi, stridor Cardiovascular Exam: Present: regular rate, normal rhythm, normal heart sounds. Absent: systolic murmur, diastolic murmur, rubs, gallop, clicks Extremities exam: Present: other (Large palpable abscess to the left upper thigh near the groin. Surrounding induration. Tenderness to palpation and increased heat. No active drainage.) Neurological exam: Present: alert, oriented X3, CN II-XII intact Psychiatric exam: Present: normal affect, normal mood Course Vital Signs 05/25/22 05/25/22 10:21 13:44 Temperature 98.8 F Pulse Rate 79 85 Respiratory 18 18 Rate Blood Pressure 137/93 145/83 O2 Sat by Pulse 99 99 Oximetry Medical Decision Making - Medical Decision Making This is a 32-year-old male who presents to the emergency department for a left leg infection. Was pt. sent in by a medical professional or institution? @ -No Did you speak to anyone other than the patient for history? @ -No Did you review nursing and triage notes? @ -Agree, accurate with regards to the patient's symptoms. Were old charts reviewed? @ -No Differential Diagnosis? @ -Abscess, cellulitis, hematoma, this is not meant to be an all-inclusive list. U/S interpreted by me (1pt. min.)? @ -My interpretation of the ultrasound reveals a fluid collection in what appears to be the subcutaneous area. The radiologist notes that this is increased from the ultrasound 5 days ago. What testing was considered but not performed? (CT, X-rays, U/S, labs)? Why? @ -None What meds were considered but not given? Why? @ -I offered pain medication such as ibuprofen or Tylenol, however the patient declined and states that he is able to manage his symptoms at this time. Did you discuss the management of the patient with other professionals? @ -Case discussed with Dr. Root, who accepts the patient for admission. She advised that this needed to be drained for optimal management and antibiotics on their own are not sufficient. I did stick a needle in a few areas in the ab scess, however I was not able to get any purulence out of this. Only very small amounts sanguinous fluid was released. The abscess itself appears to be much deeper and is not accessible for a bedside I&D. Did you reconcile home meds? @ -No Was smoking cessation discussed for >3mins.? @ -No Was critical care preformed (if so, how long)? @ -No Were there social determinants of health that impacted care today? How? (Homelessness, low income, unemployed, alcoholism, drug addiction, transportation, low edu. Level, literacy, decrease access to med. care, longterm, rehab)? @ -No Was there de-escalation of care discussed even if they declined? (Discuss DNR or withdrawal of care, Hospice)? @ -No What co-morbidities impacted this encounter? (DM, HTN, Smoking, COPD, CAD, Cancer, CVA, Hep., AIDS, mental health diagnosis, sleep apnea, morbid obesity)? @ -Morbid obesity, hyperglycemia Was patient admitted / discharged? @ -Admitted. Lab work reveals leukocytosis of 17. Procalcitonin ordered and pending. Ultrasound of the mass obtained, revealing findings concerning for an abscess and notes that this has enlarged since his ultrasound [address] Jacques evaluated the patient himself as well and advised admission based on the s ize of the abscess and failed outpatient management. He was started on vancomycin with blood cultures obtained prior. As listed above, bedside I&D was attempted, however no purulent fluid was released and the abscess itself appears to be much deeper. Patient will most likely need general surgery intervention for drainage. Drug Therapy requiring intensive monitoring for toxicity (Heparin, Nitro, Insulin, Cardizem)? @ -None Were any procedures done? @ -None Diagnosis/symptom? @ -Abscess Acute, or Chronic, or Acute on Chronic? @ -Acute Uncomplicated (without systemic symptoms) or Complicated (systemic symptoms)? @ -Uncomplicated Side effects of treatment? @ -Adverse effects to the antibiotics or worsening infection from an I&D. Exacerbation, Progression, or Severe Exacerbation] @ -Not applicable Poses a threat to life or bodily function? @ -No This case was discussed in detail with the attending ED physician. Presentation, findings, and treatment plan discussed in detail as well. - Lab Data Result diagrams: 05/25/22 11:46 05/25/22 11:46 Lab Results 05/25/22 05/25/22 05/25/22 Range/Units 11:46 11:46 11:46 WBC 17.0 H (3.8-10.6) k/uL RBC 4.75 (4.30-5.90) m/uL Hgb 14.6 (13.0-17.5) gm/dL Hct 42.1 (39.0-53.0) % MCV 88.5 (80.0-100.0) fL MCH 30.7 (25.0-35.0) pg MCHC 34.7 (31.0-37.0) g/dL RDW 12.3 (11.5-15.5) % Plt Count 279 (150-450) k/uL MPV 7.9 Neutrophils % 79 % Lymphocytes % 11 % Monocytes % 6 % Eosinophils % 2 % Basophils % 0 % Neutrophils # 13.4 H (1.3-7.7) k/uL Lymphocytes # 1.9 (1.0-4.8) k/uL Monocytes # 1.0 (0-1.0) k/uL Eosinophils # 0.3 (0-0.7) k/uL Basophils # 0.1 (0-0.2) k/uL Sodium 136 L (137-145) mmol/L Potassium 4.7 (3.5-5.1) mmol/L Chloride 105 (98-107) mmol/L Carbon Dioxide 24 (22-30) mmol/L Anion Gap 7 mmol/L BUN 11 (9-20) mg/dL Creatinine 0.72 (0.66-1.25) mg/dL Est GFR (CKD-EPI)AfAm >90 (>60 ml/min/1.73 sqM) Est GFR (CKD-EPI)NonAf >90 (>60 ml/min/1.73 sqM) Glucose 176 H (74-99) mg/dL Plasma Lactic Acid Govind 1.2 (0.7-2.0) mmol/L Calcium 8.8 (8.4-10.2) mg/dL Total Bilirubin 0.7 (0.2-1.3) mg/dL AST 25 (17-59) U/L ALT 53 H (4-49) U/L Alkaline Phosphatase 89 (38-126) U/L Total Protein 6.9 (6.3-8.2) g/dL Albumin 3.7 (3.5-5.0) g/dL - Radiology Data Radiology results: report reviewed, image reviewed Disposition Clinical Impression: Abscess of left leg, Failure of outpatient treatment Disposition: ADMITTED IP TO THIS HOSP
--- NOTE | 2022-05-25 12:13 | US ---
EXAMINATION TYPE: US extremity nonvasc mass LT DATE OF EXAM: 05/25/2022 COMPARISON: 05/20/2022 ultrasound. CLINICAL HISTORY: cellulitis, left thigh abscess. TECHNIQUE: Grayscale imaging with color Doppler imaging of the left thigh in the area of concern. FINDINGS: Patient has a red raised area of skin anterior left thigh. There has been no trauma to this area. The re is hypoechoic irregular shaped area heterogenous area that is suspicious for abscess IMPRESSION: Subcutaneous fluid collection in the area of concern concerning for abscess. This has in creased in size from 05/20/2022.
[2022-05-25 12:18] LABS: Basophils # (A) 0.1 k/uL (0-0.2); Basophils % (A) 0 %; Eosinophils # (A) 0.3 k/uL (0-0.7); Eosinophils % (A) 2 %; HCT 42.1 % (39.0-53.0); HGB 14.6 gm/dL (13.0-17.5); Lymphocytes # (A) 1.9 k/uL (1.0-4.8); Lymphocytes % (A) 11 %; MCH 30.7 pg (25.0-35.0); MCHC 34.7 g/dL (31.0-37.0); MCV 88.5 fL (80.0-100.0); Mean Platelet Volume 7.9; Monocytes % (A) 6 %; Neutrophils # (A) 13.4 k/uL (1.3-7.7); Neutrophils % (A) 79 %; Platelet Count 279 k/uL (150-450); RBC 4.75 m/uL (4.30-5.90); RDW 12.3 % (11.5-15.5)
[2022-05-25 12:20] LABS: ALT 53 U/L (4-49); AST 25 U/L (17-59); African American GFR (CKD) >90 (>60 ml/min/1.73 sqM); Albumin 3.7 g/dL (3.5-5.0); Alkaline Phosphatase 89 U/L (38-126); Anion Gap 7 mmol/L; Blood Urea Nitrogen 11 mg/dL (9-20); Calcium 8.8 mg/dL (8.4-10.2); Carbon Dioxide 24 mmol/L (22-30); Chloride 105 mmol/L (98-107); Glucose 176 mg/dL (74-99); Non-African American GFR(CKD) >90 (>60 ml/min/1.73 sqM); Sodium 136 mmol/L (137-145); Total Bilirubin 0.7 mg/dL (0.2-1.3); Total Protein 6.9 g/dL (6.3-8.2)
[2022-05-25 12:33] LABS: Potassium 4.7 mmol/L (3.5-5.1)
[2022-05-25] MEDS ORDERED: VANCOMYCIN IV PER PHARMACY 1 EACH MISC MISCELLANE PRN (12:59)
[2022-05-25] MEDS ORDERED: LIDOCAINE 1% INJ 10MG/ML (30 ML VIAL-PF) SQ ONE (13:25)
[2022-05-25] MEDS ORDERED: KETOROLAC 15 MG/ML 1 ML VIAL IVP PRN (13:26)
[2022-05-25] MEDS ORDERED: IBUPROFEN 400 MG TAB PO PRN (13:26)
[2022-05-25] MEDS ORDERED: NALOXONE 0.4 MG/ML 1 ML VIAL IV PRN (13:26)
[2022-05-25] MEDS ORDERED: ONDANSETRON 4 MG/2 ML VIAL IVP PRN (13:26)
[2022-05-25] MEDS ORDERED: VANCOMYCIN 2,000 MG in SODIUM CHLORIDE 0.9% 500 ML 500 ML IVPB ONE (13:30)
[2022-05-25] MEDS ORDERED: DEXTROSE 50% SYRINGE 50 ML IVP PRN ×2 (15:28)
[2022-05-25] MEDS ORDERED: MORPHINE SULFATE 4 MG/ML SYRINGE IV PRN (15:43)
[2022-05-25] MEDS ORDERED: HYDROcodone/APAP 5-325MG 1 EACH TAB PO PRN (15:43)
[2022-05-25] MEDS: HEPARIN SODIUM,PORCINE/PF 5,000 UNIT/0.5 ML SYRINGE SQ SCH ×2 (16:33→22:42)
[2022-05-25 16:53] LABS: Glucose,Whole Blood 165 mg/dL (70-110)
--- NOTE | 2022-05-25 17:21 | P.HPIM ---
History of Present Illness H&P Date: 05/25/22 History of Presenting Illness: Patient is a very pleasant 32-year-old male with a past medical history of diet controlled diabetes mellitus. He presented to the emergency department with a chief complaint of left leg pain, redness, and swelling. Patient was seen and evaluated in the emergency department on 05/20/22 and diagnosed with left leg cellulitis discharged home on Bactrim and Keflex. Patient reported taking antibiotics as prescribed with no relief and only worsening of symptoms. Patient reports significant redness, swelling, and pain to left thigh and reports rupture of abscess on 05/24/22 and has since progressively worsened. Patient reports he came to the emergency department for evaluation for concerns of erythema and swelling extending upwards into his groin. Patient denied having any other complaints including fevers, chills, diaphoresis, nausea, v omiting, or experiencing any numbness/tingling/weakness in his extremities. Patient underwent full evaluation in the emergency department. He was found to have moderate leukocytosis with a white blood cell count of 17.0 and left shift with neutrophils of 13.4 and hyperglycemia with glucose of 176. Ultrasound left leg showing subcutaneous fluid collection in the left eye concerning for abscess and per radiology report this has increased in size when compared to ultrasound completed on 05/20/22. Patient being admitted under surfaces with consultation to general surgery. Review of systems: Pertinent positives and negatives as discussed in HPI, a complete review of systems was performed and all other systems are negative. Physical exam: Vital signs reviewed and stable. General: Nontoxic, no distress and appears stated age. Derm: Skin warm and dry, normal coloration for ethnicity. Abscess extending horizontally across left anterior thigh with erythema and no drainage, and moderate surrounding induration and tunneling extending into left groin region firm to touch. No drainage at this time. Head: Atraumatic, normocephalic and symmetric. Eyes: EOMs intact, no lid lag, and anicteric sclera Mouth: no lip lesions, mucus membranes moist Cardiovascular: regular rate and rhythm with normal S1S2, no murmur, positive posterior tibial pulses bilaterally, and cap refill < 2 seconds. Lungs: Respirations even, regular, and unlabored on room air. Lungs CTA bilaterally, no rhonchi, no rales, no wheezing, and no accessory muscle usage. Abdominal: soft, nontender to palpation, no guarding, no appreciable organomegaly Ext: ROM intact. No gross muscle atrophy, no edema, no contractures. Neuro: Speech clear, face symmetrical and CN II-XII grossly intact with no noted focal neuro deficits Psych: Alert and oriented to person, place, time, and situation. Appropriate and pleasant affect. Assessment and Plan of Care: Left thigh abscess, failed outpatient treatment Diabetes mellitus type II with hyperglycemia Leukocytosis secondary to above -IV antibiotics vancomycin pending further culture and sensitivity reports -Consult general surgery to evaluate for I&D -Maintain tight glycemic control throughout hospitalization and treatment. Patient placed on glycemic protocol with NovoLog sliding scale. -A1c to be obtained -Wound cultures and blood culture to be obtained -Symptomatic care and pain management. -Wound care CODE STATUS: Full code DVT prophylaxis: Heparin Discussed with: Patient, patient's girlfriend at bedside and RN Anticipated discharge date: Clinical course to determine Anticipated discharge place: Home A total of 43 minutes was spent on the care of this complex patient more than 50% of the time was spent in counseling and care coordination. Ruddy Rose NP rendered care for this patient independently, reviewed the findings and plan as documented in the note above. I did not physically speak with or examine the patient on this date. Past Medical History Past Medical History: Diabetes Mellitus, Hypertension History of Any Multi-Drug Resistant Organisms: None Reported Past Surgical History: No Surgical Hx Reported Past Anesthesia/Blood Transfusion Reactions: No Reported Reaction Past Psychological History: No Psychological Hx Reported Smoking Status: Never smoker Past Alcohol Use History: Occasional Past Drug Use History: None Reported - Past Family History Father History Unknown: Yes Medications and Allergies Home Medications Medication Instructions Recorded Confirmed Type Cephalexin [Keflex] 500 mg PO BID 7 Days #14 cap 05/20/22 05/25/22 Rx Sulfamethoxazole/Trimethoprim 1 each PO BID 7 Days #14 tablet 05/20/22 05/25/22 Rx [Bactrim DS 800-160 mg] Cholecalciferol [Vitamin D3 (10 10 mcg PO DAILY 05/25/22 05/25/22 History Mcg = 400 Iu)] Multivitamins, Thera [Multivitamin 1 tab PO DAILY 05/25/22 05/25/22 History (formulary)] Thiamine [Vitamin B-1] 50 mg PO DAILY 05/25/22 05/25/22 History Allergies Allergy/AdvReac Type Severity Reaction Status Date / Time No Known Allergies Allergy Verified 05/25/22 11:48 Physical Exam Osteopathic Statement: *. No significant issues noted on an osteopathic structural exam other than those noted in the History and Physical/Consult. Vitals: Vital Signs Temp Pulse Pulse Resp BP BP Pulse Ox 05/25/22 15:00 98.2 F 88 18 144/68 99 05/25/22 13:44 85 18 145/83 99 05/25/22 10:21 98.8 F 79 18 137/93 99 Intake and Output 05/25/22 05/25/22 05/25/22 06:59 14:59 22:59 Other: # Voids 0 Weight 129.274 kg Results CBC & Chem 7: 05/25/22 11:46 05/25/22 11:46 Labs: Abnormal Lab Results - Last 24 Hours (Table) 05/25/22 05/25/22 Range/Units 11:46 11:46 WBC 17.0 H (3.8-10.6) k/uL Neutrophils # 13.4 H (1.3-7.7) k/uL Sodium 136 L (137-145) mmol/L Glucose 176 H (74-99) mg/dL ALT 53 H (4-49) U/L
[2022-05-25] MEDS: INSULIN ASPART (NovoLOG) 100 UNIT/ML VIAL SQ SCH ×2 (17:27→20:29)
--- NOTE | 2022-05-25 20:04 | P.GSCN ---
History of Present Illness Consult date: 05/25/22 History of present illness: Patient seen and evaluated for thigh abscess. Patient reports symptoms has been present for 1 week. Reports pain. Area with induration and fluctuance of upper medial left thigh. Recommend surgical drainage. Ultrasound reviewed of 4 cm abscess. Continue IV antibiotics. Recommend hot compress to promote drainage. Past Medical History Past Medical History: Diabetes Mellitus, Hypertension History of Any Multi-Drug Resistant Organisms: None Reported Past Surgical History: No Surgical Hx Reported Past Anesthesia/Blood Transfusion Reactions: No Reported Reaction Past Psychological History: No Psychological Hx Reported Smoking Status: Never smoker Past Alcohol Use History: Occasional Past Drug Use History: None Reported - Past Family History Father History Unknown: Yes Medications and Allergies Home Medications Medication Instructions Recorded Confirmed Type Cephalexin [Keflex] 500 mg PO BID 7 Days #14 cap 05/20/22 05/25/22 Rx Sulfamethoxazole/Trimethoprim 1 each PO BID 7 Days #14 tablet 05/20/22 05/25/22 Rx [Bactrim DS 800-160 mg] Cholecalciferol [Vitamin D3 (10 10 mcg PO DAILY 05/25/22 05/25/22 History Mcg = 400 Iu)] Multivitamins, Thera [Multivitamin 1 tab PO DAILY 05/25/22 05/25/22 History (formulary)] Thiamine [Vitamin B-1] 50 mg PO DAILY 05/25/22 05/25/22 History Allergies Allergy/AdvReac Type Severity Reaction Status Date / Time No Known Allergies Allergy Verified 05/25/22 11:48 Surgical - Exam Vital Signs Temp Pulse Resp BP Pulse Ox 98.8 F 79 18 137/93 99 05/25/22 10:21 05/25/22 10:21 05/25/22 10:21 05/25/22 10:21 05/25/22 10:21 Results - Labs 05/25/22 11:46 05/25/22 11:46 Abnormal Lab Results - Last 24 Hours (Table) 05/25/22 05/25/22 05/25/22 Range/Units 11:46 11:46 16:51 WBC 17.0 H (3.8-10.6) k/uL Neutrophils # 13.4 H (1.3-7.7) k/uL Sodium 136 L (137-145) mmol/L Glucose 176 H (74-99) mg/dL POC Glucose (mg/dL) 165 H (70-110) mg/dL ALT 53 H (4-49) U/L Diabetes panel 05/25/22 Range/Units 11:46 Sodium 136 L (137-145) mmol/L Potassium 4.7 (3.5-5.1) mmol/L Chloride 105 (98-107) mmol/L Carbon Dioxide 24 (22-30) mmol/L BUN 11 (9-20) mg/dL Creatinine 0.72 (0.66-1.25) mg/dL Glucose 176 H (74-99) mg/dL Calcium 8.8 (8.4-10.2) mg/dL AST 25 (17-59) U/L ALT 53 H (4-49) U/L Alkaline Phosphatase 89 (38-126) U/L Total Protein 6.9 (6.3-8.2) g/dL Albumin 3.7 (3.5-5.0) g/dL Calcium panel 05/25/22 Range/Units 11:46 Calcium 8.8 (8.4-10.2) mg/dL Albumin 3.7 (3.5-5.0) g/dL Pituitary panel 05/25/22 Range/Units 11:46 Sodium 136 L (137-145) mmol/L Potassium 4.7 (3.5-5.1) mmol/L Chloride 105 (98-107) mmol/L Carbon Dioxide 24 (22-30) mmol/L BUN 11 (9-20) mg/dL Creatinine 0.72 (0.66-1.25) mg/dL Glucose 176 H (74-99) mg/dL Calcium 8.8 (8.4-10.2) mg/dL Adrenal panel 05/25/22 Range/Units 11:46 Sodium 136 L (137-145) mmol/L Potassium 4.7 (3.5-5.1) mmol/L Chloride 105 (98-107) mmol/L Carbon Dioxide 24 (22-30) mmol/L BUN 11 (9-20) mg/dL Creatinine 0.72 (0.66-1.25) mg/dL Glucose 176 H (74-99) mg/dL Calcium 8.8 (8.4-10.2) mg/dL Total Bilirubin 0.7 (0.2-1.3) mg/dL AST 25 (17-59) U/L ALT 53 H (4-49) U/L Alkaline Phosphatase 89 (38-126) U/L Total Protein 6.9 (6.3-8.2) g/dL Albumin 3.7 (3.5-5.0) g/dL
[2022-05-25 20:08] LABS: Glucose,Whole Blood 128 mg/dL (70-110)
[2022-05-25] MEDS: KETOROLAC 15 MG/ML 1 ML VIAL IVP SCH (20:28)
[2022-05-25] MEDS: VANCOMYCIN 2,000 MG in SODIUM CHLORIDE 0.9% 500 ML 500 ML IVPB SCH (22:40)
[2022-05-26] MEDS: KETOROLAC 15 MG/ML 1 ML VIAL IVP SCH ×5 (00:39→23:14)
[2022-05-26] MEDS: VANCOMYCIN 2,000 MG in SODIUM CHLORIDE 0.9% 500 ML 500 ML IVPB SCH ×3 (06:23→21:09)
[2022-05-26] MEDS: INSULIN ASPART (NovoLOG) 100 UNIT/ML VIAL SQ SCH ×4 (06:23→21:08)
[2022-05-26 06:32] LABS: Glucose,Whole Blood 130 mg/dL (70-110)
[2022-05-26] MEDS: THIAMINE 100 MG TAB PO SCH (08:38)
[2022-05-26] MEDS: HEPARIN SODIUM,PORCINE/PF 5,000 UNIT/0.5 ML SYRINGE SQ SCH ×3 (08:39→23:14)
[2022-05-26 11:15] LABS: HCT 41.5 % (39.0-53.0); HGB 14.3 gm/dL (13.0-17.5); MCH 30.4 pg (25.0-35.0); MCHC 34.4 g/dL (31.0-37.0); MCV 88.5 fL (80.0-100.0); Mean Platelet Volume 7.8; Platelet Count 260 k/uL (150-450); RBC 4.69 m/uL (4.30-5.90); RDW 12.6 % (11.5-15.5); WBC 14.9 k/uL (3.8-10.6)
[2022-05-26 11:35] LABS: African American GFR (CKD) >90 (>60 ml/min/1.73 sqM); Anion Gap 6 mmol/L; Blood Urea Nitrogen 11 mg/dL (9-20); C Reactive Protein 4.8 mg/dL (<1.0); Calcium 8.6 mg/dL (8.4-10.2); Carbon Dioxide 25 mmol/L (22-30); Chloride 105 mmol/L (98-107); Glucose 184 mg/dL (74-99); Non-African American GFR(CKD) >90 (>60 ml/min/1.73 sqM); Potassium 4.3 mmol/L (3.5-5.1); Sodium 136 mmol/L (137-145)
[2022-05-26 12:07] LABS: Glucose,Whole Blood 136 mg/dL (70-110)
[2022-05-26 17:11] LABS: Glucose,Whole Blood 182 mg/dL (70-110)
--- NOTE | 2022-05-26 18:08 | P.PN ---
Subjective Progress Note Date: 05/26/22 Hospital course: Patient is a very pleasant 32-year-old male with a past medical history of diet controlled diabetes mellitus. He presented to the emergency department with a chief complaint of left leg pain, redness, and swelling. Patient was seen and evaluated in the emergency department on 05/20/22 and diagnosed with left leg cellulitis discharged home on Bactrim and Keflex. Patient reported taking antibiotics as prescribed with no relief and only worsening of symptoms. Pat will reports significant redness, swelling, and pain to left thigh and reports rupture of abscess on 05/24/22 and has since progressively worsened. Patient reports he came to the emergency department for evaluation for concerns of erythema and swelling extending upwards into his groin. Patient denied having any other complaints including fevers, chills, diaphoresis, nausea, vomiting, or experiencing any numbness/tingling/weakness in his extremities. Patient underwent full evaluation in the emergency department. He was found to have moderate leukocytosis with a white blood cell count of 17.0 and left shift with neutrophils of 13.4 and hyperglycemia with glucose of 176. Ultrasound left leg showing subcutaneous fluid collection in the left eye concerning for abscess and per radiology report this has increased in size when compared to ultrasound completed on 05/20/22. Patient was admitted under our services with consultation to general surgery. Physical exam: Patient seen and fully evaluated at bedside. Patient reports general surgeon evaluated yesterday but did not update him on plan of care. RN reports patient is scheduled for I&D tomorrow. Patient reports pain is controlled with current pain medication regimen and denies any other complaints at this time. Leukocytosis slightly improvingwith WBC count decreasing to 14.9. Vital signs reviewed and stable. General: Nontoxic, no distress and appears stated age. Derm: Skin warm and dry, normal coloration for ethnicity. Abscess extending horizontally across left anterior thigh with erythema and no drainage, has mo derate surrounding induration and tunneling extending into left groin and down medial thigh region very warm and firm to touch. No drainage at this time. Head: Atraumatic, normocephalic and symmetric. Eyes: EOMs intact, no lid lag, and anicteric sclera Mouth: no lip lesions, mucus membranes moist Cardiovascular: regular rate and rhythm with normal S1S2, no murmur, positive posterior tibial pulses bilaterally, and cap refill < 2 seconds. Lungs: Respirations even, regular, and unlabored on room air. Lungs CTA bilaterally, no rhonchi, no rales, no wheezing, and no accessory muscle usage. Abdominal: soft, nontender to palpation, no guarding, no appreciable organomegaly Ext: ROM intact. No gross muscle atrophy, no edema, no contractures. Neuro: Speech clear, face symmetrical and CN II-XII grossly intact with no noted focal neuro deficits Psych: Alert and oriented to person, place, time, and situation. Appropriate and pleasant affect. Assessment and Plan of Care: Left thigh abscess, failed outpatient treatment Diabetes mellitus type II with hyperglycemia Leukocytosis secondary to above, slightly improving -Continue IV antibiotics vancomycin pending further culture and sensitivity reports -Consult general surgery to evaluate for I&D -Maintain tight glycemic control throughout hospitalization and treatment. Patient placed on glycemic protocol with NovoLog sliding scale. -hemoglobin A1c 7%. Plan to discharge pt home on metformin 500 mg BID twice a day -Wound cultures and blood culture to be obtained -Symptomatic care and pain management. -Wound care CODE STATUS: Full code DVT prophylaxis: Heparin Discussed with: Patient, patient's girlfriend at bedside and RN Anticipated discharge date: Clinical course to determine Anticipated discharge place: Home A total of 31 minutes was spent on the care of this complex patient more than 50% of the time was spent in counseling and care coordination. Objective - Vital Signs Vital signs: Vital Signs Temp 98.1 F 05/26/22 07:00 Pulse 87 05/26/22 07:00 Resp 14 05/26/22 07:00 BP 120/75 05/26/22 07:00 Pulse Ox 100 05/26/22 07:00 FiO2 Intake & Output 05/25/22 05/26/22 05/26/22 18:59 06:59 18:59 Intake Total 240 220 Balance 240 220 Weight 129.274 kg Intake: Oral 240 220 Other: # Voids 0 1 - Labs CBC & Chem 7: 05/26/22 10:43 05/26/22 10:43 Labs: Abnormal Lab Results - Last 24 Hours (Table) 05/25/22 05/25/22 05/25/22 Range/Units 11:46 11:46 16:51 WBC 17.0 H (3.8-10.6) k/uL Neutrophils # 13.4 H (1.3-7.7) k/uL Sodium 136 L (137-145) mmol/L Glucose 176 H (74-99) mg/dL POC Glucose (mg/dL) 165 H (70-110) mg/dL ALT 53 H (4-49) U/L 05/25/22 05/26/22 Range/Units 20:07 06:21 WBC (3.8-10.6) k/uL Neutrophils # (1.3-7.7) k/uL Sodium (137-145) mmol/L Glucose (74-99) mg/dL POC Glucose (mg/dL) 128 H 130 H (70-110) mg/dL ALT (4-49) U/L
[2022-05-26 20:32] LABS: Glucose,Whole Blood 192 mg/dL (70-110)
--- NOTE | 2022-05-26 22:22 | P.PN ---
Subjective Progress Note Date: 05/26/22 sound results reviewed and patient with a 45 cm abscess pocket of the left upper thigh. Recommend incision and drainage. Cultures will be obtained. Need PICC line. Also recommend infectious disease management referral outpatient treatment. Explicit inpatient hospitalization of these 4 days pending mi crobiology results. All questions related patient's family bedside. Objective - Vital Signs Vital signs: Vital Signs Temp 99.1 F 05/26/22 19:19 Pulse 82 05/26/22 19:19 Resp 18 05/26/22 19:19 BP 146/80 05/26/22 19:19 Pulse Ox 98 05/26/22 19:19 FiO2 Intake & Output 05/26/22 05/26/22 05/27/22 06:59 18:59 06:59 Intake Total 220 Balance 220 Intake: Oral 220 Other: # Voids 1 1 - Labs CBC & Chem 7: 05/26/22 10:43 05/26/22 10:43 Labs: Abnormal Lab Results - Last 24 Hours (Table) 05/25/22 05/26/22 05/26/22 Range/Units 16:37 06:21 10:43 WBC 14.9 H (3.8-10.6) k/uL Sodium (137-145) mmol/L Glucose (74-99) mg/dL POC Glucose (mg/dL) 130 H (70-110) mg/dL Hemoglobin A1c 7.0 H (0.0-6.0) % C-Reactive Protein (<1.0) mg/dL 05/26/22 05/26/22 05/26/22 Range/Units 10:43 12:06 17:08 WBC (3.8-10.6) k/uL Sodium 136 L (137-145) mmol/L Glucose 184 H (74-99) mg/dL POC Glucose (mg/dL) 136 H 182 H (70-110) mg/dL Hemoglobin A1c (0.0-6.0) % C-Reactive Protein 4.8 H (<1.0) mg/dL 05/26/22 Range/Units 20:29 WBC (3.8-10.6) k/uL Sodium (137-145) mmol/L Glucose (74-99) mg/dL POC Glucose (mg/dL) 192 H (70-110) mg/dL Hemoglobin A1c (0.0-6.0) % C-Reactive Protein (<1.0) mg/dL Microbiology - Last 24 Hours (Table) 05/25/22 13:08 Blood Culture - Preliminary Blood No Growth after 24 hours 05/25/22 13:05 Blood Culture - Preliminary Blood No Growth after 24 hours
[2022-05-27] MEDS ORDERED: VANCOMYCIN TROUGH DUE 1 EACH MISC MISCELLANE ONE (05:00)
[2022-05-27] MEDS: VANCOMYCIN 2,000 MG in SODIUM CHLORIDE 0.9% 500 ML 500 ML IVPB SCH ×3 (06:22→22:36)
[2022-05-27] MEDS: KETOROLAC 15 MG/ML 1 ML VIAL IVP SCH ×3 (06:24→17:07)
[2022-05-27 07:34] LABS: Glucose,Whole Blood 146 mg/dL (70-110)
[2022-05-27] MEDS: INSULIN ASPART (NovoLOG) 100 UNIT/ML VIAL SQ SCH ×4 (07:41→20:54)
[2022-05-27] MEDS: HEPARIN SODIUM,PORCINE/PF 5,000 UNIT/0.5 ML SYRINGE SQ SCH ×2 (07:42→15:16)
[2022-05-27] MEDS: THIAMINE 100 MG TAB PO SCH (07:42)
[2022-05-27 09:00] LABS: HCT 38.7 % (39.6-50.0); HGB 12.7 g/dL (13.0-17.0); MCH 29.6 pg (27.0-32.0); MCHC 32.8 g/dL (32.0-37.0); MCV 90.2 fL (80.0-97.0); Mean Platelet Volume 9.7 fL (9.5-12.2); NRBC Per 100 WBC 0 /100 WBCS (0.0-0.0); Platelet Count 266 X 10*3/uL (140-440); RBC 4.29 X 10*6/uL (4.40-5.60); RDW 12.1 % (11.5-14.5); WBC 12.79 X 10*3/uL (4.50-10.00)
[2022-05-27 12:21] LABS: Glucose,Whole Blood 144 mg/dL (70-110)
[2022-05-27] MEDS ORDERED: IV FLUID CONTINUATION 700 ML IV ONE (14:01)
[2022-05-27] MEDS ORDERED: HYDROmorphone (PF) 1 MG/ML ONE (14:51)
[2022-05-27] MEDS ORDERED: fentaNYL (PF) 50 MCG/ML 2 ML AMP ONE (14:51)
[2022-05-27] MEDS ORDERED: MIDAZOLAM 2 MG/2 ML VIAL ONE (14:51)
[2022-05-27] MEDS ORDERED: LIDOCAINE 2% INJ 20 MG/ML (2 ML VIAL) ONE (14:51)
[2022-05-27] MEDS ORDERED: HEPARIN SODIUM,PORCINE 5,000 UNIT/ML 1 ML VIAL ONE (14:51)
[2022-05-27] MEDS ORDERED: PROPOFOL 10 MG/ML 20 ML VIAL IV ONE (14:51)
[2022-05-27] MEDS ORDERED: BUPIVACAIN-EPI 0.25%-1:200,000 30 ML VIAL SQ ONE (15:13)
[2022-05-27 16:54] LABS: Glucose,Whole Blood 158 mg/dL (70-110)
--- NOTE | 2022-05-27 17:33 | P.OP ---
Date of Procedure: 05/27/22 Description of Procedure: SURGEON: LILIYA PARKS MD MANAGER BEHAVIOR: NONE. PREOPERATIVE DIAGNOSES: 1. Cellulitis with abscess left upper medial thigh 2. History of diabetes type 2 with hyperglycemia, new diagnosis 3. Sepsis due to cellulitis left thigh 4. Failed outpatient antibiotic therapy POSTOPERATIVE DIAGNOSES: 1. Cellulitis with abscess left upper medial thigh, 22 x 15 cm 2. History of diabetes type 2 with hyperglycemia, new diagnosis 3. Sepsis due to cellulitis left thigh 4. Failed outpatient antibiotic therapy OPERATION: 1. Drainage of subcutaneous complex left upper medial thigh anterior compartment 22 x 15 cm abscess with cellulitis, 120-mL 2. Mechanical debridement with 3 L water jet pulse lavage of complex left upper medial thigh anterior compartment. 3. Placement of 1/4-inch carina drain, left upper medial thigh, anterior compartment. FINDINGS: 1. Complex subcutaneous left upper medial thigh anterior compartment abscess 2. Nelson purulent drainage extends to the deep subcutaneous tissue with adequate drainage, 120-mL evacuated ANESTHESIA: MAC with local ESTIMATED BLOOD LOSS: 50 mL. SPECIMENS REMOVED: Aerobic, anaerobic culture COMPLICATIONS: None. INDICATIONS: The patient is a 32-year-old male who presents with complex left upper medial thigh abscess which has worsened over 1 week. Symptoms have progressively worsened despite being on vancomycin. Urgent surgical intervention was described. Benefits and risks were reviewed. Informed consent was obtained. DESCRIPTION: Patient was brought into the operating room, laid in supine position. After adequate IV sedation, the left leg was prepped and draped in standard sterile fashion using ChloraPrep. Prior to incision a timeout protocol was confirmed with surgical team regarding patient's name including procedures being performed. Preoperative antibiotic, which was scheduled vancomycin were already administered. DVT prophylaxis with bilateral SCDs were reviewed. The skin was localized using local anesthetic. An incision along the skin tension line at the left upper medial anterior compartment of the thigh of 3-cm was deepened into the subcutaneous tissue where immediately nelson purulent drainage was evacuated of at least 120 mL. Aerobic, anaerobic cultures were obtained. The pocket was explored using digital palpation and its actual size was 22 cm in diameter extending posteriorly and along the medial aspect by 15 cm. Next hemostasis was checked with electro- Bovie cautery. Using 3 L normal saline waterjet pulsed lavage, the wound was copiously irrigated. A 1/4-inch carina drain was tunnelled from lateral to medial thigh. The [place] drain was secured to skin using 2-0 nylon x 3. Kerlix roll, ABD and 6 inch Medipore was placed around the leg after cleansing the skin. At the end of the procedure, the needle and sponge counts were verified correct by the neurosurgical physician assistant. The patient tolerated the procedure well and was taken to postanesthesia care unit in stable condition.
--- NOTE | 2022-05-27 17:39 | P.PN ---
Subjective Progress Note Date: 05/27/22 Hospital course: Patient is a very pleasant 32-year-old male with a past medical history of diet controlled diabetes mellitus. He presented to the emergency department with a chief complaint of left leg pain, redness, and swelling. Patient was seen and evaluated in the emergency department on 05/20/22 and diagnosed with left leg cellulitis discharged home on Bactrim and Keflex. Patient reported taking antibiotics as prescribed with no relief and only worsening of symptoms. Alix solis reports significant redness, swelling, and pain to left thigh and reports rupture of abscess on 05/24/22 and has since progressively worsened. Patient reports he came to the emergency department for evaluation for concerns of erythema and swelling extending upwards into his groin. Patient denied having any other complaints including fevers, chills, diaphoresis, nausea, vomiting, or experiencing any numbness/tingling/weakness in his extremities. Patient underwent full evaluation in the emergency department. He was found to have moderate leukocytosis with a white blood cell count of 17.0 and left shift with neutrophils of 13.4 and hyperglycemia with glucose of 176. Ultrasound left leg showing subcutaneous fluid collection in the left eye concerning for abscess and per radiology report this has increased in size when compared to ultrasound completed on 05/20/22. Patient was admitted under our services with consultation to general surgery. Physical exam: 05/27/22 Patient seen and fully evaluated at bedside upon return from the operating room status post I&D of left leg. Patient remains slightly sleepy from previously administered anesthesia but easily awoken and give verbal stimuli. Currently reports postoperative pain is controlled and denies having any complaints or concerns at this time. Postoperative dressing in place left thigh and is currently clean, dry, and intact. WBC is continuing to trend down since initiation of vancomycin and upon review of morning labs WBCs 12.79 from previous 17.0 upon admission. CRP also improving as was initially 4.8 and now down to 3.0. We will plan to continue with IV antibiotic vancomycin pending further culture and sensitivity reports. May consider consult to infectious disease and PICC line placement pending culture results as patient may require extended course of IV antibiotics. Blood glucose levels remained elevated and patient to remain on sliding scale. Plan is for discharge home on metformin 500 mg twice a day as hemoglobin A1c was elevated at 7%. Patient has been having episodes of hypotension throughout hospitalization. Patient reports previous diagnosis of hypertension but is currently not on any medications. Patient will be started on antihypertensive medication amlodipine at this time, most r ecent blood pressure 167/91 with heart rate of 88.. Vital signs reviewed and stable with the exception of hypertension. General: Nontoxic, no distress and appears stated age. Derm: Skin warm and dry, normal coloration for ethnicity. Post surgical dressing in place to left leg and is clean, dry, and intact. Head: Atraumatic, normocephalic and symmetric. Eyes: EOMs intact, no lid lag, and anicteric sclera Mouth: no lip lesions, mucus membranes moist Cardiovascular: regular rate and rhythm with normal S1S2, no murmur, positive posterior tibial pulses bilaterally, and cap refill < 2 seconds. Lungs: Respirations even, regular, and unlabored on room air. Lungs CTA bilaterally, no rhonchi, no rales, no wheezing, and no accessory muscle usage. Abdominal: soft, nontender to palpation, no guarding, no appreciable organomegaly Ext: ROM intact. No gross muscle atrophy, no edema, no contractures. Neuro: Speech clear, face symmetrical and CN II-XII grossly intact with no noted focal neuro deficits Psych: Alert and oriented to person, place, time, and situation. Appropriate and pleasant affect. Assessment and Plan of Care: Left thigh abscess, failed outpatient treatment Leukocytosis secondary to above, slightly improving -Gen. surgery following, patient is status post surgical I&D of left leg on 05/27/22 -Continue IV antibiotics vancomycin pending further culture and sensitivity r eports. -May consider consult to infectious disease and PICC line placement pending culture results as patient may require extended course of IV antibiotics. -Blood cultures showing no growth to date. -Symptomatic care and pain management. -Wound care Uncontrolled hypertension -Patient hypertensive throughout hospitalization and current blood pressure 167/91 with heart rate of 88. Patient being started on amlodipine 5 mg daily at this time. Diabetes mellitus type II with hyperglycemia -Maintain tight glycemic control throughout hospitalization and treatment. Patient placed on glycemic protocol with NovoLog sliding scale. -Hemoglobin A1c 7%. Plan to discharge pt home on metformin 500 mg BID twice a day CODE STATUS: Full code DVT prophylaxis: Heparin Discussed with: Patient, patient's girlfriend at bedside and RN Anticipated discharge date: Clinical course to determine Anticipated discharge place: Home A total of 31 minutes was spent on the care of this complex patient more than 50% of the time was spent in counseling and care coordination. I reviewed the documentation as provided by the JOE above, who is the original author of this note. I agree with the documented assessment and plan, with the following changes: none Objective - Vital Signs Vital signs: Vital Signs Temp 97.7 F 05/27/22 07:00 Pulse 75 05/27/22 07:00 Resp 16 05/27/22 07:00 BP 155/91 05/27/22 07:00 Pulse Ox 98 05/27/22 07:00 FiO2 Intake & Output 05/26/22 05/27/22 05/27/22 18:59 06:59 18:59 Intake Total 220 Balance 220 Intake: Oral 220 Other: # Voids 1 2 - Labs CBC & Chem 7: 05/29/22 06:02 05/30/22 05:00 Labs: Abnormal Lab Results - Last 24 Hours (Table) 05/25/22 05/26/22 05/26/22 Range/Units 16:37 10:43 10:43 WBC 14.9 H (3.8-10.6) k/uL RBC (4.40-5.60) X 10*6/uL Hgb (13.0-17.0) g/dL Hct (39.6-50.0) % Sodium 136 L (137-145) mmol/L Glucose 184 H (74-99) mg/dL POC Glucose (mg/dL) (70-110) mg/dL Hemoglobin A1c 7.0 H (0.0-6.0) % C-Reactive Protein 4.8 H (<1.0) mg/dL 05/26/22 05/26/22 05/26/22 Range/Units 12:06 17:08 20:29 WBC (3.8-10.6) k/uL RBC (4.40-5.60) X 10*6/uL Hgb (13.0-17.0) g/dL Hct (39.6-50.0) % Sodium (137-145) mmol/L Glucose (74-99) mg/dL POC Glucose (mg/dL) 136 H 182 H 192 H (70-110) mg/dL Hemoglobin A1c (0.0-6.0) % C-Reactive Protein (<1.0) mg/dL 05/27/22 05/27/22 Range/Units 04:59 07:26 WBC 12.79 H (3.8-10.6) k/uL RBC 4.29 L (4.40-5.60) X 10*6/uL Hgb 12.7 L (13.0-17.0) g/dL Hct 38.7 L (39.6-50.0) % Sodium (137-145) mmol/L Glucose (74-99) mg/dL POC Glucose (mg/dL) 146 H (70-110) mg/dL Hemoglobin A1c (0.0-6.0) % C-Reactive Protein (<1.0) mg/dL Microbiology - Last 24 Hours (Table) 05/25/22 13:08 Blood Culture - Preliminary Blood No Growth after 24 hours 05/25/22 13:05 Blood Culture - Preliminary Blood No Growth after 24 hours
[2022-05-27] MEDS: amLODIPine 5 MG TAB PO SCH (17:58)
[2022-05-27 20:46] LABS: Glucose,Whole Blood 141 mg/dL (70-110)
[2022-05-27] MEDS ORDERED: HYDROmorphone 1 MG/ML 1 ML SYRINGE IVP PRN (21:44)
--- NOTE | 2022-05-27 21:44 | P.PN ---
Progress Note - Text Progress Note Date: 05/27/22 Cultures obtained. May need antibiotic adjustment pending culture sensitivities. Recommend management per infectious disease.
[2022-05-28] MEDS: HEPARIN SODIUM,PORCINE/PF 5,000 UNIT/0.5 ML SYRINGE SQ SCH ×4 (00:09→22:22)
[2022-05-28] MEDS: KETOROLAC 15 MG/ML 1 ML VIAL IVP SCH ×4 (00:09→21:28)
[2022-05-28] MEDS: VANCOMYCIN 2,000 MG in SODIUM CHLORIDE 0.9% 500 ML 500 ML IVPB SCH ×3 (06:16→21:28)
[2022-05-28 07:49] LABS: Glucose,Whole Blood 126 mg/dL (70-110)
[2022-05-28] MEDS: INSULIN ASPART (NovoLOG) 100 UNIT/ML VIAL SQ SCH ×4 (07:55→21:00)
[2022-05-28 08:36] LABS: HGB 12.4 g/dL (13.0-17.0); MCH 29.5 pg (27.0-32.0); MCHC 34.4 g/dL (32.0-37.0); MCV 85.5 fL (80.0-97.0); Mean Platelet Volume 9.4 fL (9.5-12.2); NRBC Per 100 WBC 0 /100 WBCS (0.0-0.0); Platelet Count 276 X 10*3/uL (140-440); RBC 4.21 X 10*6/uL (4.40-5.60); RDW 11.9 % (11.5-14.5); WBC 11.68 X 10*3/uL (4.50-10.00)
[2022-05-28 08:47] LABS: Albumin 3.3 g/dL (3.8-4.9); Albumin/Globulin Ratio 1.36 (1.60-3.17); Anion Gap 8.7 mmol/L (10.00-18.00); BUN/Creat Ratio 11.96 Ratio (12.00-20.00); Blood Urea Nitrogen 9.4 mg/dL (9.0-27.0); Calcium 8.8 mg/dL (8.7-10.3); Carbon Dioxide 25.4 mmol/L (20.0-27.5); Globulin 2.4 g/dL (1.6-3.3); Magnesium 2.2 mg/dL (1.5-2.4); Non-African American GFR(CKD) 119.9 (60.0-200.0); Potassium 4.1 mmol/L (3.5-5.5); Total Bilirubin 0.4 mg/dL (0.30-1.20); Total Protein 5.7 g/dL (6.2-8.2)
[2022-05-28] MEDS: THIAMINE 100 MG TAB PO SCH (09:37)
[2022-05-28] MEDS: amLODIPine 5 MG TAB PO SCH (09:38)
[2022-05-28 12:01] LABS: Glucose,Whole Blood 121 mg/dL (70-110)
--- NOTE | 2022-05-28 15:29 | P.PN ---
Subjective Progress Note Date: 05/28/22 CHIEF COMPLAINT: Cellulitis left upper thigh HISTORY OF PRESENT ILLNESS: Patient is postop day #1 status post drainage of left thigh abscess with debridement and placement of [place] drain. Patient reports that his pain has improved since the procedure. He has minimal drainage noted on bandage. Afebrile. WBC trending down from 12-11.68 cultures pending glucose 121 PHYSICAL EXAM: VITAL SIGNS: Reviewed GENERAL: Well-developed in no acute distress. HEENT: No sclera icterus. Extraocular movements grossly intact. Moist buccal mucosa. Head is atraumatic, normocephalic. Hears conversational speech. No nasal drainage. NECK: Supple without lymphadenopathy. CHEST: Non-labored respirations and equal bilateral excursions. CARDIOVASCULAR: Palpable 2+ radial pulses. ABDOMEN: Soft. Nondistended. Nontender. MUSCULOSKELETAL: No clubbing or cyanosis. NEUROLOGIC: No focal or lateralizing signs. Cranial nerves II through XII grossly intact. PSYCH: Appropriate affect. Alert and oriented to person, place and time. SKIN: Well perfused. Good skin turgor. Extremities left thigh [place] drain in place. Minimal drainage noted on bandage serosanguineous in color. Mild tenderness with palpation. There is still area of firmness on the medial aspect of the incision ASSESSMENT: 1. Cellulitis with abscess left upper medial thigh, 22 x 15 cm 2. History of diabetes type 2 with hyperglycemia, new diagnosis 3. Sepsis due to cellulitis left thigh 4. Failed outpatient antibiotic therapy PLAN: -Consult infectious disease for antibiotic management -Follow up on culture results -Continue antibiotics -Continue supportive care -Continue pain management -Continue diabetes management Physician Chief I Dispatcher note has been reviewed by physician. Signing provider agrees with the documented findings, assessment, and plan of care. Objective - Vital Signs Vital signs: Vital Signs Temp 98.5 F 05/28/22 15:00 Pulse 85 05/28/22 15:00 Resp 18 05/28/22 15:00 BP 143/73 05/28/22 15:00 Pulse Ox 98 05/28/22 15:00 FiO2 Intake & Output 05/27/22 05/28/22 05/28/22 18:59 06:59 18:59 Intake Total 600 Output Total 20 Balance 580 Intake: IV 600 Output: Estimated Blood Loss 20 Other: # Voids 2 3 2 - Labs CBC & Chem 7: 05/28/22 05:27 05/28/22 05:27 Labs: Abnormal Lab Results - Last 24 Hours (Table) 05/27/22 05/27/22 05/28/22 Range/Units 16:53 20:45 05:27 WBC 11.68 H (4.50-10.00) X 10*3/uL RBC 4.21 L (4.40-5.60) X 10*6/uL Hgb 12.4 L (13.0-17.0) g/dL Hct 36.0 L (39.6-50.0) % MPV 9.4 L (9.5-12.2) fL Anion Gap (10.00-18.00) mmol/L BUN/Creatinine Ratio (12.00-20.00) Ratio POC Glucose (mg/dL) 158 H 141 H (70-110) mg/dL Total Protein (6.2-8.2) g/dL Albumin (3.8-4.9) g/dL Albumin/Globulin Ratio (1.60-3.17) g/dL 05/28/22 05/28/22 05/28/22 Range/Units 05:27 07:47 11:59 WBC (4.50-10.00) X 10*3/uL RBC (4.40-5.60) X 10*6/uL Hgb (13.0-17.0) g/dL Hct (39.6-50.0) % MPV (9.5-12.2) fL Anion Gap 8.70 L (10.00-18.00) mmol/L BUN/Creatinine Ratio 11.96 L (12.00-20.00) Ratio POC Glucose (mg/dL) 126 H 121 H (70-110) mg/dL Total Protein 5.7 L (6.2-8.2) g/dL Albumin 3.3 L (3.8-4.9) g/dL Albumin/Globulin Ratio 1.36 L (1.60-3.17) g/dL Microbiology - Last 24 Hours (Table) 05/27/22 15:15 Anaerobic Culture - Preliminary Thigh - Left 05/27/22 15:15 Wound Culture - Preliminary Thigh - Left 05/25/22 13:05 Blood Culture - Preliminary Blood No Growth after 48 hours 05/25/22 13:08 Blood Culture - Preliminary Blood No Growth after 48 hours
[2022-05-28 17:16] LABS: Glucose,Whole Blood 184 mg/dL (70-110)
--- NOTE | 2022-05-28 19:03 | P.PN ---
Subjective Progress Note Date: 05/28/22 Hospital course: Patient is a very pleasant 32-year-old male with a past medical history of diet controlled diabetes mellitus. He presented to the emergency department with a chief complaint of left leg pain, redness, and swelling. Patient was seen and evaluated in the emergency department on 05/20/22 and diagnosed with left leg cellulitis discharged home on Bactrim and Keflex. Patient reported taking antibiotics as prescribed with no relief and only worsening of symptoms. Alix solis reports significant redness, swelling, and pain to left thigh and reports rupture of abscess on 05/24/22 and has since progressively worsened. Patient reports he came to the emergency department for evaluation for concerns of erythema and swelling extending upwards into his groin. Patient denied having any other complaints including fevers, chills, diaphoresis, nausea, vomiting, or experiencing any numbness/tingling/weakness in his extremities. Patient underwent full evaluation in the emergency department. He was found to have moderate leukocytosis with a white blood cell count of 17.0 and left shift with neutrophils of 13.4 and hyperglycemia with glucose of 176. Ultrasound left leg showing subcutaneous fluid collection in the left eye concerning for abscess and per radiology report this has increased in size when compared to ultrasound completed on 05/20/22. Patient was admitted under our services with consultation to general surgery. Physical exam: 05/27/22 Patient seen and fully evaluated at bedside upon return from the operating room status post I&D of left leg. Patient remains slightly sleepy from previously administered anesthesia but easily awoken and give verbal stimuli. Currently reports postoperative pain is controlled and denies having any complaints or concerns at this time. Postoperative dressing in place left thigh and is currently clean, dry, and intact. WBC is continuing to trend down since initiation of vancomycin and upon review of morning labs WBCs 12.79 from previous 17.0 upon admission. CRP also improving as was initially 4.8 and now down to 3.0. We will plan to continue with IV antibiotic vancomycin pending further culture and sensitivity reports. May consider consult to infectious disease and PICC line placement pending culture results as patient may require extended course of IV antibiotics. Blood glucose levels remained elevated and patient to remain on sliding scale. Plan is for discharge home on metformin 500 mg twice a day as hemoglobin A1c was elevated at 7%. Patient has been having episodes of hypotension throughout hospitalization. Patient reports previous diagnosis of hypertension but is currently not on any medications. Patient will be started on antihypertensive medication amlodipine at this time, most r ecent blood pressure 167/91 with heart rate of 88. 05/28/22: Patient was seen and fully evaluated at bedside. Patient reports currently has full control of postoperative pain. Dressing in place to left anterior medial thigh, and enforced with ABDs and is clean, dry, and intact. Patient denies having any numbness/tingling/weakness in left lower extremity. He has remained afebrile. Morning labs reviewed revealing further improvement of leukocytosis with WBC count of 11.68. Hemoglobin stable at 12.4. Patient was started on amlodipine yesterday secondary to persistent hypertension throughout hospitalization and history of hypertension not currently on medication. Since initiation of amlodipine 5 mg daily patient's blood pressures are better controlled with morning blood pressure 129/81 and heart rate of 76. Patient continues to have mild hyperglycemia and remains on NovoLog sliding s stef at this time. Upon discharge patient will need to be prescribed oral diabetic medication such as metformin. Blood and Wound cultures showing no growth to date. Recommending patient continue with IV antibiotic vancomycin pending culture results, pending culture results may consider infectious disease consult if outpatient long-term antibiotics will be needed. Vital signs reviewed and stable with the exception of hypertension. General: Nontoxic, no distress and appears stated age. Derm: Skin warm and dry, normal coloration for ethnicity. Post surgical dressing in place to left leg and is clean, dry, and intact. Head: Atraumatic, normocephalic and symmetric. Eyes: EOMs intact, no lid lag, and anicteric sclera Mouth: no lip lesions, mucus membranes moist Cardiovascular: regular rate and rhythm with normal S1S2, no murmur, positive posterior tibial pulses bilaterally, and cap refill < 2 seconds. Lungs: Respirations even, regular, and unlabored on room air. Lungs CTA bilater ally, no rhonchi, no rales, no wheezing, and no accessory muscle usage. Abdominal: soft, nontender to palpation, no guarding, no appreciable organomegaly Ext: ROM intact. No gross muscle atrophy, no edema, no contractures. Neuro: Speech clear, face symmetrical and CN II-XII grossly intact with no noted focal neuro deficits Psych: Alert and oriented to person, place, time, and situation. Appropriate and pleasant affect. Assessment and Plan of Care: Left thigh abscess, failed outpatient treatment. Status post surgical I&D of left leg on 05/27/22. Leukocytosis secondary to above, slightly improving -Gen. surgery following, patient is status post surgical I&D of left leg on 05/27/22 -Continue IV antibiotics vancomycin pending further culture and sensitivity reports. -May consider consult to infectious disease and PICC line placement pending culture results as patient may require extended course of IV antibiotics. -Blood cultures showing no growth to date. -Symptomatic care and pain management. -Wound care Uncontrolled hypertension -Patient hypertensive throughout hospitalization and was started on amlodipine 5 mg daily. -Blood pressure is better controlled with morning blood pressure 129/81 with heart rate of 76. Diabetes mellitus type II with hyperglycemia -Maintain tight glycemic control throughout hospitalization and treatment. Patient placed on glycemic protocol with NovoLog sliding scale. -Hemoglobin A1c 7%. Plan to discharge pt home on metformin 500 mg BID twice a da y CODE STATUS: Full code DVT prophylaxis: Heparin Discussed with: Patient and RN Anticipated discharge date: Clinical course to determine Anticipated discharge place: Home A total of 31 minutes was spent on the care of this complex patient more than 50% of the time was spent in counseling and care coordination. I reviewed the documentation as provided by the JOE above, who is the original author of this note. I agree with the documented assessment and plan, with the following changes: none Objective - Vital Signs Vital signs: Vital Signs Temp 98.1 F 05/28/22 07:00 Pulse 76 05/28/22 07:00 Resp 18 05/28/22 07:00 BP 129/81 05/28/22 07:00 Pulse Ox 97 05/28/22 07:00 FiO2 Intake & Output 05/27/22 05/28/22 05/28/22 18:59 06:59 18:59 Intake Total 600 Output Total 20 Balance 580 Intake: IV 600 Output: Estimated Blood Loss 20 Other: # Voids 2 3 - Labs CBC & Chem 7: 05/29/22 06:02 05/30/22 05:00 Labs: Abnormal Lab Results - Last 24 Hours (Table) 05/27/22 05/27/22 05/27/22 Range/Units 04:59 12:20 16:53 WBC (4.50-10.00) X 10*3/uL RBC (4.40-5.60) X 10*6/uL Hgb (13.0-17.0) g/dL Hct (39.6-50.0) % MPV (9.5-12.2) fL Anion Gap (10.00-18.00) mmol/L BUN/Creatinine Ratio (12.00-20.00) Ratio POC Glucose (mg/dL) 144 H 158 H (70-110) mg/dL C-Reactive Protein 3.00 H (0.00-0.80) mg/dL Total Protein (6.2-8.2) g/dL Albumin (3.8-4.9) g/dL Albumin/Globulin Ratio (1.60-3.17) g/dL 05/27/22 05/28/22 05/28/22 Range/Units 20:45 05:27 05:27 WBC 11.68 H (4.50-10.00) X 10*3/uL RBC 4.21 L (4.40-5.60) X 10*6/uL Hgb 12.4 L (13.0-17.0) g/dL Hct 36.0 L (39.6-50.0) % MPV 9.4 L (9.5-12.2) fL Anion Gap 8.70 L (10.00-18.00) mmol/L BUN/Creatinine Ratio 11.96 L (12.00-20.00) Ratio POC Glucose (mg/dL) 141 H (70-110) mg/dL C-Reactive Protein (0.00-0.80) mg/dL Total Protein 5.7 L (6.2-8.2) g/dL Albumin 3.3 L (3.8-4.9) g/dL Albumin/Globulin Ratio 1.36 L (1.60-3.17) g/dL 05/28/22 Range/Units 07:47 WBC (4.50-10.00) X 10*3/uL RBC (4.40-5.60) X 10*6/uL Hgb (13.0-17.0) g/dL Hct (39.6-50.0) % MPV (9.5-12.2) fL Anion Gap (10.00-18.00) mmol/L BUN/Creatinine Ratio (12.00-20.00) Ratio POC Glucose (mg/dL) 126 H (70-110) mg/dL C-Reactive Protein (0.00-0.80) mg/dL Total Protein (6.2-8.2) g/dL Albumin (3.8-4.9) g/dL Albumin/Globulin Ratio (1.60-3.17) g/dL Microbiology - Last 24 Hours (Table) 05/27/22 15:15 Anaerobic Culture - Preliminary Thigh - Left 05/27/22 15:15 Wound Culture - Preliminary Thigh - Left 05/25/22 13:05 Blood Culture - Preliminary Blood No Growth after 48 hours 05/25/22 13:08 Blood Culture - Preliminary Blood No Growth after 48 hours
[2022-05-28 19:40] LABS: Glucose,Whole Blood 122 mg/dL (70-110)
--- NOTE | 2022-05-28 22:18 | P.CONS ---
History of Present Illness - Reason for Consult Consult date: 05/28/22 Left thigh abscess and cellulitis Requesting physician: Romy Dey - Chief Complaint Left thigh pain and swelling x days - History of Present Illness Patient is a 32-year-old -[place] male with started having a problem with the left medial thigh area pain swelling and redness for the patient was initially evaluated on 05/20/2022 and the patient was started on Bactrim and Keflex however the patient noticed to having a increasing pain and swelling and redness patient describing the area to be painful throbbing almost directly severity with associated swelling and redness with April the patient was evaluated by ER physician on May 25, 2022 patient on presentation to the hospital was afebrile and no fever has been recorded subsequently patient did have a white count of 17,000 creatinine was normal liver enzymes are normal patient did have a ultrasound of the left thigh area shows subcutaneous fluid collection in the left concerning for an abscess patient was taken to the OR last evening and this patient is status post drainage of the subcutaneous complex left upper medial thigh compartment 22 into 15 cm drain was placed patient is currently being treated with vancomycin infectious disease consult is warranted for further management of antibiotic therapy Review of Systems Positive point has been mentioned in the HPI rest of the systems are negative Past Medical History Past Medical History: Diabetes Mellitus, Hypertension History of Any Multi-Drug Resistant Organisms: None Reported Past Surgical History: No Surgical Hx Reported Past Anesthesia/Blood Transfusion Reactions: No Reported Reaction Past Psychological History: No Psychological Hx Reported Smoking Status: Never smoker Past Alcohol Use History: Occasional Past Drug Use History: None Reported - Past Family History Father History Unknown: Yes Medications and Allergies Home Medications Medication Instructions Recorded Confirmed Type Cholecalciferol [Vitamin D3 (10 10 mcg PO DAILY 05/25/22 05/25/22 History Mcg = 400 Iu)] Multivitamins, Thera [Multivitamin 1 tab PO DAILY 05/25/22 05/25/22 History (formulary)] Thiamine [Vitamin B-1] 50 mg PO DAILY 05/25/22 05/25/22 History DAPTOmycin [Cubicin Rf] 500 mg IV DAILY #14 each 05/30/22 Rx Allergies Allergy/AdvReac Type Severity Reaction Status Date / Time No Known Allergies Allergy Verified 05/27/22 14:07 Physical Exam Vitals: Vital Signs Temp Pulse Pulse Resp BP BP Pulse Ox 05/28/22 07:00 98.1 F 76 18 129/81 97 05/28/22 02:35 98.5 F 75 18 143/87 98 05/27/22 19:40 97.4 F L 85 18 155/81 98 05/27/22 17:30 93 155/83 99 05/27/22 17:15 98 160/90 98 05/27/22 17:00 88 16 167/91 97 05/27/22 16:45 88 164/96 95 05/27/22 16:30 99.0 F 92 16 177/93 95 05/27/22 15:54 88 16 165/84 98 05/27/22 15:39 97.2 F L 98 16 176/88 98 05/27/22 14:00 98 F 75 16 137/76 97 Intake and Output 05/27/22 05/28/22 05/28/22 22:59 06:59 14:59 Intake Total 0 Output Total 20 Balance -20 Intake: IV 0 Output: Estimated Blood Loss 20 Other: # Voids 1 3 GENERAL DESCRIPTION: Middle-aged male lying in bed, no distress. No tachypnea or accessory muscle of respiration use. HEENT: Shows Pallor , no scleral icterus. Oral mucous membrane is dry. No pharyngeal erythema or thrush NECK: Trachea central, no thyromegaly. LUNGS: Unlabored breathing. Clear to auscultation anteriorly. No wheeze or crackle. HEART: S1, S2, regular rate and rhythm. No loud murmur ABDOMEN: Soft, no tenderness , guarding or rigidity, no organomegaly EXTREMITIES: Left thigh with Significant swelling and induration and drainage on the dressing SKIN: No rash, no masses palpable. NEUROLOGICAL: The patient is awake, alert, oriented x3, mood and affect normal. Results CBC & Chem 7: 05/29/22 06:02 05/30/22 05:00 Labs: Abnormal Lab Results - Last 24 Hours (Table) 05/27/22 05/27/22 05/27/22 Range/Units 04:59 12:20 16:53 WBC (4.50-10.00) X 10*3/uL RBC (4.40-5.60) X 10*6/uL Hgb (13.0-17.0) g/dL Hct (39.6-50.0) % MPV (9.5-12.2) fL Anion Gap (10.00-18.00) mmol/L BUN/Creatinine Ratio (12.00-20.00) Ratio POC Glucose (mg/dL) 144 H 158 H (70-110) mg/dL C-Reactive Protein 3.00 H (0.00-0.80) mg/dL Total Protein (6.2-8.2) g/dL Albumin (3.8-4.9) g/dL Albumin/Globulin Ratio (1.60-3.17) g/dL 05/27/22 05/28/22 05/28/22 Range/Units 20:45 05:27 05:27 WBC 11.68 H (4.50-10.00) X 10*3/uL RBC 4.21 L (4.40-5.60) X 10*6/uL Hgb 12.4 L (13.0-17.0) g/dL Hct 36.0 L (39.6-50.0) % MPV 9.4 L (9.5-12.2) fL Anion Gap 8.70 L (10.00-18.00) mmol/L BUN/Creatinine Ratio 11.96 L (12.00-20.00) Ratio POC Glucose (mg/dL) 141 H (70-110) mg/dL C-Reactive Protein (0.00-0.80) mg/dL Total Protein 5.7 L (6.2-8.2) g/dL Albumin 3.3 L (3.8-4.9) g/dL Albumin/Globulin Ratio 1.36 L (1.60-3.17) g/dL 05/28/22 Range/Units 07:47 WBC (4.50-10.00) X 10*3/uL RBC (4.40-5.60) X 10*6/uL Hgb (13.0-17.0) g/dL Hct (39.6-50.0) % MPV (9.5-12.2) fL Anion Gap (10.00-18.00) mmol/L BUN/Creatinine Ratio (12.00-20.00) Ratio POC Glucose (mg/dL) 126 H (70-110) mg/dL C-Reactive Protein (0.00-0.80) mg/dL Total Protein (6.2-8.2) g/dL Albumin (3.8-4.9) g/dL Albumin/Globulin Ratio (1.60-3.17) g/dL Microbiology - Last 24 Hours (Table) 05/27/22 15:15 Anaerobic Culture - Preliminary Thigh - Left 05/27/22 15:15 Wound Culture - Preliminary Thigh - Left 05/25/22 13:05 Blood Culture - Preliminary Blood No Growth after 48 hours 05/25/22 13:08 Blood Culture - Preliminary Blood No Growth after 48 hours Assessment and Plan (1) Abscess of left leg Current Visit: Yes Status: Acute Code(s): L02.416 - CUTANEOUS ABSCESS OF LEFT LOWER LIMB SNOMED Code(s): 586214173 Plan: 1patient presented to hospital with extensive left upper thigh abscess failing outpatient oral Keflex and Bactrim DS therapy status post extensive OR drainage likely from gram-positive skin roberto such as MRSA. 2vancomycin pharmacy to dose with a target trough of 15 while watching kidney function and Vanco trough closely.. We will follow on clinical condition and cultures to further adjust medication if needed Thank you for this consultation we will follow the patient along with you Time with Patient: Greater than 30
[2022-05-29 05:27] LABS: Glucose,Whole Blood 174 mg/dL (70-110)
[2022-05-29] MEDS: VANCOMYCIN 2,000 MG in SODIUM CHLORIDE 0.9% 500 ML 500 ML IVPB SCH ×3 (06:17→21:42)
[2022-05-29] MEDS: INSULIN ASPART (NovoLOG) 100 UNIT/ML VIAL SQ SCH ×4 (06:17→21:42)
[2022-05-29] MEDS: amLODIPine 5 MG TAB PO SCH (06:47)
[2022-05-29] MEDS: HEPARIN SODIUM,PORCINE/PF 5,000 UNIT/0.5 ML SYRINGE SQ SCH ×3 (08:18→21:45)
[2022-05-29] MEDS: THIAMINE 100 MG TAB PO SCH (08:18)
[2022-05-29 08:55] LABS: African American GFR (CKD) 131.4 (60.0-200.0); Non-African American GFR(CKD) 113.4 (60.0-200.0)
[2022-05-29 12:33] LABS: Glucose,Whole Blood 144 mg/dL (70-110)
[2022-05-29 12:44] LABS: Basophils % (A) 1 %; Eosinophils # (A) 0.2 k/uL (0-0.7); Eosinophils % (A) 3 %; HCT 38.2 % (39.0-53.0); HGB 12.8 gm/dL (13.0-17.5); Lymphocytes # (A) 2.1 k/uL (1.0-4.8); Lymphocytes % (A) 32 %; MCH 30.7 pg (25.0-35.0); MCHC 33.5 g/dL (31.0-37.0); MCV 91.5 fL (80.0-100.0); Mean Platelet Volume 8.4; Monocytes # (A) 0.3 k/uL (0-1.0); Monocytes % (A) 5 %; Neutrophils # (A) 3.7 k/uL (1.3-7.7); Neutrophils % (A) 58 %; Platelet Count 271 k/uL (150-450); RBC 4.18 m/uL (4.30-5.90); WBC 6.4 k/uL (3.8-10.6)
--- NOTE | 2022-05-29 14:28 | P.PN ---
Subjective Progress Note Date: 05/29/22 Hospital Course: 32-year-old male with a past medical history of diet controlled diabetes mellitus. He presented to the emergency department with a chief complaint of left leg pain, redness, and swelling. Patient was seen and evaluated in the emergency department on 05/20/22 and diagnosed with left leg cellulitis discharged home on Bactrim and Keflex. Patient reported taking antibiotics as prescribed with no relief and only worsening of symptoms. Patient reports significant redness, swelling, and pain to left thigh and reports rupture of abscess on 05/24/22 and has since progressively worsened. Patient reports he came to the emergency department for evaluation for concerns of erythema and swelling extending upwards into his groin. Patient denied having any other complaints including fevers, chills, diaphoresis, nausea, vomiting, or experiencing any numbness/tingling/weakness in his extremities. Patient underwent full evaluation in the emergency department. He was found to have moderate leukocytosis with a white blood cell count of 17.0 and left shift with neutrophils of 13.4 and hyperglycemia with glucose of 176. Ultrasound left leg showing subcutaneous fluid collection in the left eye concerning for abscess and per radiology report this has increased in size when compared to ultrasound completed on 05/20/22. General surgery consulted. Status post I&D. Preliminary cultures growing MRSA. Patient currently on vancomycin. Infectious disease consulted. Subjective: Patient seen and examined at bedside. No acute events overnight. Denies any significant left eye pain. He claims that he feels back to normal, once to go home soon as his cultures resolved. Pertinent positives and negatives as discussed above, a complete review of systems was performed and all other systems are negative. Vitals Signs Reviewed. General: nontoxic, no distress, appears at stated age Derm: warm, dry, left thigh abscess with drain in place draining serosanguineous fluid, dressing on top. Head: atraumatic, normocephalic, symmetric Eyes: EOMI, no lid lag, anicteric sclera Mouth: no lip lesion, mucus membranes moist Cardiovascular: S1S2 reg, no murmur Lungs: CTA bilateral, no rhonchi, no rales , no accessory muscle use Abdominal: soft, nontender to palpation, no guarding, no appreciable organomegaly Ext: no gross muscle atrophy, no edema, no contractures Neuro: CN II-XI grossly intact, no focal neuro deficits Psych: Alert, oriented, appropriate affect Assessment and Plan: Left thigh abscess, failed outpatient treatment. Status post surgical I&D of left leg on 05/27/22. Leukocytosis secondary to above, slightly improving -Gen. surgery following -Continue IV antibiotics vancomycin, growing MRSA presumptively -ID consulted -Blood cultures showing no growth to date. -Symptomatic care and pain management. -Wound care Uncontrolled hypertension -Patient hypertensive throughout hospitalization and was started on amlodipine 5 mg daily. Diabetes mellitus type II with hyperglycemia -Maintain tight glycemic control throughout hospitalization and treatment. Patient placed on glycemic protocol with NovoLog sliding scale. -Hemoglobin A1c 7%. Plan to discharge pt home on metformin 500 mg BID twice a day DVT ppx: Subcu heparin Code status: Full code Anticipated discharge place: home Anticipated discharge time: likely tomorrow Objective - Vital Signs Vital signs: Vital Signs Temp 97.7 F 05/29/22 08:00 Pulse 86 05/29/22 08:00 Resp 20 05/29/22 08:00 BP 160/80 05/29/22 08:00 Pulse Ox 99 05/29/22 08:00 FiO2 Intake & Output 05/28/22 05/29/22 05/29/22 18:59 06:59 18:59 Intake Total 118 Balance 118 Intake: Oral 118 Other: # Voids 2 1 - Labs CBC & Chem 7: 05/29/22 06:02 05/29/22 06:02 Labs: Abnormal Lab Results - Last 24 Hours (Table) 05/28/22 05/28/22 05/29/22 Range/Units 17:11 19:39 05:25 RBC (4.30-5.90) m/uL Hgb (13.0-17.5) gm/dL Hct (39.0-53.0) % POC Glucose (mg/dL) 184 H 122 H 174 H (70-110) mg/dL 05/29/22 05/29/22 Range/Units 06:02 12:30 RBC 4.18 L (4.30-5.90) m/uL Hgb 12.8 L (13.0-17.5) gm/dL Hct 38.2 L (39.0-53.0) % POC Glucose (mg/dL) 144 H (70-110) mg/dL Microbiology - Last 24 Hours (Table) 05/27/22 15:15 Gram Stain - Preliminary Thigh - Left Wound Culture - Preliminary Presumptive MRSA 05/25/22 13:08 Blood Culture - Preliminary Blood No Growth after 72 hours 05/25/22 13:05 Blood Culture - Preliminary Blood No Growth after 72 hours
[2022-05-29] MEDS: ACETAMINOPHEN TAB 325 MG TAB PO PRN (15:33)
--- NOTE | 2022-05-29 15:39 | P.PN ---
Subjective Progress Note Date: 05/29/22 CHIEF COMPLAINT: Cellulitis left upper thigh HISTORY OF PRESENT ILLNESS: Patient is postop day #2 status post drainage of left thigh abscess with debridement and placement of [place] drain. Patient reports that he is feeling better each day. Reports decrease in his pain. Denies any nausea or vomiting. Tolerating regular diet. Wound culture is growing presumptive MRSA. Patient has been seen by infectious disease. PICC line has been ordered for outpatient IV antibiotics. Afebrile. WBC has norm alized from 11.68 to 6.4 Hgb is 12.8 platelets are 271 PHYSICAL EXAM: VITAL SIGNS: Reviewed GENERAL: Well-developed in no acute distress. HEENT: No sclera icterus. Extraocular movements grossly intact. Moist buccal mucosa. Head is atraumatic, normocephalic. Hears conversational speech. No nasal drainage. NECK: Supple without lymphadenopathy. CHEST: Non-labored respirations and equal bilateral excursions. CARDIOVASCULAR: Palpable 2+ radial pulses. ABDOMEN: Soft. Nondistended. Nontender. MUSCULOSKELETAL: No clubbing or cyanosis. NEUROLOGIC: No focal or lateralizing signs. Cranial nerves II through XII grossly intact. PSYCH: Appropriate affect. Alert and oriented to person, place and time. SKIN: Well perfused. Good skin turgor. Extremities left thigh [place] drain in place. Minimal drainage noted on bandage serosanguineous in color. Mild tenderness with palpation. There is still area of firmness on the medial aspect of the incision ASSESSMENT: 1. Cellulitis with abscess left upper medial thigh, 22 x 15 cm 2. History of diabetes type 2 with hyperglycemia, new diagnosis 3. Sepsis due to cellulitis left thigh 4. Failed outpatient antibiotic therapy PLAN: -Patient scheduled for PICC line placement -Antibiotic recommendations per ID service -Patient can shower with Hibiclens -Continue supportive care -Continue pain management -Continue diabetes management Physician Boat Tender note has been reviewed by physician. Signing provider agrees with the documented findings, assessment, and plan of care. Objective - Vital Signs Vital signs: Vital Signs Temp 97.6 F 05/29/22 15:12 Pulse 89 05/29/22 15:12 Resp 20 05/29/22 15:12 BP 142/87 05/29/22 15:12 Pulse Ox 98 05/29/22 15:12 FiO2 Intake & Output 05/28/22 05/29/22 05/29/22 18:59 06:59 18:59 Intake Total 118 Balance 118 Intake: Oral 118 Other: # Voids 2 1 - Labs CBC & Chem 7: 05/29/22 06:02 05/29/22 06:02 Labs: Abnormal Lab Results - Last 24 Hours (Table) 05/28/22 05/28/22 05/29/22 Range/Units 17:11 19:39 05:25 RBC (4.30-5.90) m/uL Hgb (13.0-17.5) gm/dL Hct (39.0-53.0) % POC Glucose (mg/dL) 184 H 122 H 174 H (70-110) mg/dL 05/29/22 05/29/22 Range/Units 06:02 12:30 RBC 4.18 L (4.30-5.90) m/uL Hgb 12.8 L (13.0-17.5) gm/dL Hct 38.2 L (39.0-53.0) % POC Glucose (mg/dL) 144 H (70-110) mg/dL Microbiology - Last 24 Hours (Table) 05/27/22 15:15 Gram Stain - Preliminary Thigh - Left Wound Culture - Preliminary Presumptive MRSA 05/25/22 13:08 Blood Culture - Preliminary Blood No Growth after 72 hours 05/25/22 13:05 Blood Culture - Preliminary Blood No Growth after 72 hours
[2022-05-29 17:27] LABS: Glucose,Whole Blood 183 mg/dL (70-110)
[2022-05-29 20:57] LABS: Glucose,Whole Blood 228 mg/dL (70-110)
[2022-05-30] MEDS ORDERED: VANCOMYCIN TROUGH DUE 1 EACH MISC MISCELLANE ONE (05:00)
[2022-05-30] MEDS: VANCOMYCIN 2,000 MG in SODIUM CHLORIDE 0.9% 500 ML 500 ML IVPB SCH (05:26)
[2022-05-30 05:56] LABS: Glucose,Whole Blood 131 mg/dL (70-110)
[2022-05-30] MEDS: INSULIN ASPART (NovoLOG) 100 UNIT/ML VIAL SQ SCH ×2 (05:59→11:54)
[2022-05-30 08:01] VITALS: BP 145/77; PULSE 67; RESP 18; TEMP 98
--- NOTE | 2022-05-30 08:33 | P.PN ---
Subjective Progress Note Date: 05/29/22 Principal diagnosis: Left thigh MRSA abscess and cellulitis Patient is a 32-year-old -[place] male with started having a problem with the left medial thigh area pain swelling and redness for the patient was initially evaluated on 05/20/2022 and the patient was started on Bactrim and Keflex , patient subsequently has been reviewed Hospital with extensive left thigh abscess and cellulitis status post surgical drainage culture now growing presumptive MRSA. On today's evaluation that is 05/29/2022, the patient denies having any fever or any chills pain to the left thigh has slightly decreased in intensity, patient denies having any chest pain or shortness of breath or cough no abdominal pain no diarrhea Objective - Vital Signs Vital signs: Vital Signs Temp 97.7 F 05/29/22 08:00 Pulse 86 05/29/22 08:00 Resp 20 05/29/22 08:00 BP 160/80 05/29/22 08:00 Pulse Ox 99 05/29/22 08:00 FiO2 Intake & Output 05/28/22 05/29/22 05/29/22 18:59 06:59 18:59 Intake Total 118 Balance 118 Intake: Oral 118 Other: # Voids 2 1 - Exam GENERAL DESCRIPTION: Middle-aged male lying in bed in no distress RESPIRATORY SYSTEM: Unlabored breathing , decreased breath sounds at bases HEART: S1 S2 regular rate and rhythm , ABDOMEN: Soft , no tenderness EXTREMITIES: Left breast has significant induration - Labs CBC & Chem 7: 05/29/22 06:02 05/29/22 06:02 Labs: Abnormal Lab Results - Last 24 Hours (Table) 05/28/22 05/28/22 05/29/22 Range/Units 17:11 19:39 05:25 RBC (4.30-5.90) m/uL Hgb (13.0-17.5) gm/dL Hct (39.0-53.0) % POC Glucose (mg/dL) 184 H 122 H 174 H (70-110) mg/dL 05/29/22 05/29/22 Range/Units 06:02 12:30 RBC 4.18 L (4.30-5.90) m/uL Hgb 12.8 L (13.0-17.5) gm/dL Hct 38.2 L (39.0-53.0) % POC Glucose (mg/dL) 144 H (70-110) mg/dL Microbiology - Last 24 Hours (Table) 05/27/22 15:15 Gram Stain - Preliminary Thigh - Left Wound Culture - Preliminary Presumptive MRSA 05/25/22 13:08 Blood Culture - Preliminary Blood No Growth after 72 hours 05/25/22 13:05 Blood Culture - Preliminary Blood No Growth after 72 hours Assessment and Plan (1) MRSA (methicillin resistant staph aureus) culture positive Current Visit: Yes Status: Acute Code(s): Z22.322 - CARRIER OR SUSPECTED CARRIER OF METHICILLIN RESIS STAPH SNOMED Code(s): 471425440 (2) Abscess of left leg Current Visit: Yes Status: Acute Code(s): L02.416 - CUTANEOUS ABSCESS OF LEFT LOWER LIMB SNOMED Code(s): 913924835 Plan: 1patient presented to hospital with extensive left upper thigh abscess failing outpatient oral Keflex and Bactrim DS therapy status post extensive OR drainage likely from gram-positive skin roberto such as MRSA. 2local culture has been colonized with MRSA 3patient to continue with vancomycin pharmacy to dose with a target trough of 15 while watching kidney function however keeping in mind his extensive infection patient will benefit from outpatient IV to by therapy in the form of daily daptomycin as the patient preferred to go to outpatient infusion clinic PICC line will be ordered
[2022-05-30] MEDS: HEPARIN SODIUM,PORCINE/PF 5,000 UNIT/0.5 ML SYRINGE SQ SCH (10:15)
[2022-05-30] MEDS: amLODIPine 5 MG TAB PO SCH (10:18)
[2022-05-30] MEDS: ACETAMINOPHEN TAB 325 MG TAB PO PRN (10:18)
[2022-05-30] MEDS: THIAMINE 100 MG TAB PO SCH (10:18)
[2022-05-30 11:47] LABS: Glucose,Whole Blood 129 mg/dL (70-110)
[2022-05-30] MEDS ORDERED: LIDOCAINE 1% INJ 10MG/ML (5 ML VIAL-PF) SQ ONE (12:56)
[2022-05-30] MEDS ORDERED: SODIUM CHLORIDE 0.9% 1,000 ML IV ONE (12:56)
--- NOTE | 2022-05-30 13:16 | P.PN ---
Subjective Progress Note Date: 05/30/22 Principal diagnosis: Left thigh MRSA abscess and cellulitis Patient is a 32-year-old -[place]ong[place] male with started having a problem with the left medial thigh area pain swelling and redness for the patient was initially evaluated on 05/20/2022 and the patient was started on Bactrim and Keflex , patient subsequently has been reviewed Hospital with extensive left thigh abscess and cellulitis status post surgical drainage culture now growing presumptive MRSA. On today's evaluation that is 05/30/2022, the patient remains to be afebrile, the patient pain to the left thigh has decreased in intensity, patient denies having any chest pain or shortness of breath or cough no abdominal pain no diarrhea, overall feeling better Objective - Vital Signs Vital signs: Vital Signs Temp 98 F 05/30/22 08:00 Pulse 67 05/30/22 08:00 Resp 18 05/30/22 08:00 BP 145/77 05/30/22 08:00 Pulse Ox 99 05/30/22 08:00 FiO2 Intake & Output 05/29/22 05/30/22 05/30/22 18:59 06:59 18:59 Intake Total 118 Balance 118 Intake: Oral 118 Other: # Voids 1 4 - Exam GENERAL DESCRIPTION: Middle-aged male lying in bed in no distress RESPIRATORY SYSTEM: Unlabored breathing , decreased breath sounds at bases HEART: S1 S2 regular rate and rhythm , ABDOMEN: Soft , no tenderness EXTREMITIES: Left thigh induration has slightly decreased in intensity - Labs CBC & Chem 7: 05/29/22 06:02 05/30/22 05:00 Labs: Abnormal Lab Results - Last 24 Hours (Table) 05/29/22 05/29/22 05/29/22 Range/Units 06:02 12:30 17:25 RBC 4.18 L (4.30-5.90) m/uL Hgb 12.8 L (13.0-17.5) gm/dL Hct 38.2 L (39.0-53.0) % POC Glucose (mg/dL) 144 H 183 H (70-110) mg/dL 05/29/22 05/30/22 Range/Units 20:55 05:54 RBC (4.30-5.90) m/uL Hgb (13.0-17.5) gm/dL Hct (39.0-53.0) % POC Glucose (mg/dL) 228 H 131 H (70-110) mg/dL Microbiology - Last 24 Hours (Table) 05/27/22 15:15 Anaerobic Culture - Preliminary Thigh - Left 05/27/22 15:15 Gram Stain - Final Thigh - Left Wound Culture - Final Methicillin resist S. aureus 05/25/22 13:08 Blood Culture - Preliminary Blood No Growth after 96 hours 05/25/22 13:05 Blood Culture - Preliminary Blood No Growth after 96 hours Assessment and Plan (1) MRSA (methicillin resistant staph aureus) culture positive Current Visit: Yes Status: Acute Code(s): Z22.322 - CARRIER OR SUSPECTED CARRIER OF METHICILLIN RESIS STAPH SNOMED Code(s): 196010571 (2) Abscess of left leg Current Visit: Yes Status: Acute Code(s): L02.416 - CUTANEOUS ABSCESS OF LEFT LOWER LIMB SNOMED Code(s): 153567231 Plan: 1patient presented to hospital with extensive left upper thigh abscess failing outpatient oral Keflex and Bactrim DS therapy status post extensive OR drainage likely from gram-positive skin roberto such as MRSA. 2local culture has been colonized with MRSA 3patient seemed to have shown clinical improvement however keeping in mind his extensive infection patient has been advised IV daptomycin on discharge for daily dosing at the infusion clinic he'll be given a dose of 500 mg 1 now and continue with the same dose for 2 weeks and close outpatient follow-up Time with Patient: Less than 30
--- NOTE | 2022-05-30 13:31 | IR ---
PICC LINE PLACEMENT: HISTORY: Infection requiring long-term antibiotic therapy PROCEDURE: Ultrasound and fluoroscopic guidance of PICC line placement. COMPLICATIONS: None ANESTHESIA: 1. 1% Lidocaine locally. FINDINGS/TECHNIQUE: The procedure was explained to the patient. The risks, complications, benefits and alternatives were discussed and any questions were answered. Informed consent was obtained. The patient was placed supine on the fluoroscopic table and prepped and draped in the usual sterile fash ion. Utilizing a 21 gauge needle and sonographic and fluoroscopic guidance, access in the left basi lic vein was achieved and there is placement of a 0.018 guidewire. The vein is patent. A 4-F sheath was placed over the guidewire. The guidewire and dilator were removed and a 4-F. PICC line was plac ed through the sheath with the tip at the level of the SVC. The sheath was removed, the catheter was flushed and sutured into position. The patient was stable throughout the procedure and remained sta ble upon discharge from the Department of Radiology. The vein puncture was patent under ultrasound. A casillas scale image was obtained to document patency of the vein punctured. All elements of the maximal barrier technique were utilized. FLUOROSCOPY TIME: 0.8 minutes of fluoroscopy and one images submitted IMPRESSION: Successful PICC line placement under ultrasound and fluoroscopic guidance.
--- NOTE | 2022-05-30 15:06 | P.DS ---
Providers Date of admission: 05/26/22 18:08 Expected date of discharge: 05/30/22 Attending physician: Janie Root DO Consults: 05/25/22 15:30 Consult Physician Routine Consulting Provider: Siobhan Ventura Consult Reason/Comments: thigh abscess, diabetic Do you want consulting provider notified?: Yes 05/28/22 08:22 Consult Physician Routine Consulting Provider: Danika Molina Consult Reason/Comments: leg abscess, failed outpatient antibiotics Do you want consulting provider notified?: Yes Primary care physician: Stated None Hospital Course: Discharge Diagnosis: Left thigh abscess Leukocytosis Hypertension Type 2 diabetes Morbid obesity Hospital Course: 32-year-old male with a past medical history of diet controlled diabetes mellitus. He presented to the emergency department with a chief complaint of left leg pain, redness, and swelling. Patient was seen and evaluated in the emergency department on 05/20/22 and diagnosed with left leg cellulitis discharged home on Bactrim and Keflex. Patient reported taking antibiotics as prescribed with no relief and only worsening of symptoms. Patient reports significant redness, swelling, and pain to left thigh and reports rupture of abscess on 05/24/22 and has since progressively worsened. Patient reports he came to the emergency department for evaluation for concerns of erythema and swelling extending upwards into his groin. Patient denied having any other complaints including fevers, chills, diaphoresis, nausea, vomiting, or experiencing any numbness/tingling/weakness in his extremities. Patient underwent full evaluation in the emergency department. He was found to have moderate leukocytosis with a white blood cell count of 17.0 and left shift with neutrophils of 13.4 and hyperglycemia with glucose of 176. Ultrasound left leg showing subcutaneous fluid collection in the left eye concerning for abscess and per radiology report this has increased in size when compared to ultrasound completed on 05/20/22. General surgery consulted. Status post I&D. Cultures growing MRSA. Patient was on vancomycin. Infectious disease consulted. Patient being discharged with a PICC line, daptomycin at home. Patient also started on amlodipine as well as metformin 500 twice a day. A1c while in the hospital was 7. Patient seen and examined at bedside. Vital signs reviewed and stable. General: nontoxic, no distress, appears at stated age Derm: warm, dry, left thigh abscess with drain in place draining serosanguineous fluid, dressing on top. Head: atraumatic, normocephalic, symmetric Eyes: EOMI, no lid lag, anicteric sclera Mouth: no lip lesion, mucus membranes moist Cardiovascular: S1S2 reg, no murmur Lungs: CTA bilateral, no rhonchi, no rales , no accessory muscle use Abdominal: soft, nontender to palpation, no guarding, no appreciable organomegaly Ext: no gross muscle atrophy, no edema, no contractures Neuro: CN II-XI grossly intact, no focal neuro deficits Psych: Alert, oriented, appropriate affec A total of 35 minutes of time were spent preparing this complex discharge summary. Patient was discharged on 05/30/22 at 15:00. Patient Condition at Discharge: Stable Plan - Discharge Summary New Discharge Prescriptions: New DAPTOmycin [Cubicin Rf] 500 mg IV DAILY #14 each amLODIPine [Norvasc] 5 mg PO DAILY #30 tab metFORMIN HCL [Glucophage] 500 mg PO BID #60 tab Continue Thiamine [Vitamin B-1] 50 mg PO DAILY Cholecalciferol [Vitamin D3 (10 Mcg = 400 Iu)] 10 mcg PO DAILY Multivitamins, Thera [Multivitamin (formulary)] 1 tab PO DAILY Discontinued Sulfamethoxazole/Trimethoprim [Bactrim DS 800-160 mg] 1 each PO BID 7 Days #14 tablet Cephalexin [Keflex] 500 mg PO BID 7 Days #14 cap Discharge Medication List Cholecalciferol [Vitamin D3 (10 Mcg = 400 Iu)] 10 mcg PO DAILY 05/25/22 [History] Multivitamins, Thera [Multivitamin (formulary)] 1 tab PO DAILY 05/25/22 [History] Thiamine [Vitamin B-1] 50 mg PO DAILY 05/25/22 [History] DAPTOmycin [Cubicin Rf] 500 mg IV DAILY #14 each 05/30/22 [Rx] amLODIPine [Norvasc] 5 mg PO DAILY #30 tab 05/30/22 [Rx] metFORMIN HCL [Glucophage] 500 mg PO BID #60 tab 05/30/22 [Rx] Follow up Appointment(s)/Referral(s): Servando Ryan MD [REFERRING] - 1-2 Days [facility]fusion [NON-STAFF] - As Needed (Office will call to set up a time. ) Danika Molina MD [STAFF PHYSICIAN] - 1 Week Patient Instructions/Handouts: Abscess (GEN), How to Care for Your PICC (Peripherally Inserted Central Catheter) (DC), Incision and Drainage (DC) Discharge Disposition: HOME WITH HOME HEALTH SERVICES
--- NOTE | 2022-05-30 15:54 | P.PN ---
Subjective Progress Note Date: 05/30/22 CHIEF COMPLAINT: Cellulitis left upper thigh HISTORY OF PRESENT ILLNESS: Patient is postop day #3 status post drainage of left thigh abscess with debridement and placement of [place] drain. Patient feels ready for discharge. He has no pain. He did receive his PICC line. He is anticipating discharge later today. Culture did grow MRSA PHYSICAL EXAM: VITAL SIGNS: Reviewed GENERAL: Well-developed in no acute distress. HEENT: No sclera icterus. Extraocular movements grossly intact. Moist buccal mucosa. Head is atraumatic, normocephalic. Hears conversational speech. No nasal drainage. NECK: Supple without lymphadenopathy. CHEST: Non-labored respirations and equal bilateral excursions. CARDIOVASCULAR: Palpable 2+ radial pulses. ABDOMEN: Soft. Nondistended. Nontender. MUSCULOSKELETAL: No clubbing or cyanosis. NEUROLOGIC: No focal or lateralizing signs. Cranial nerves II through XII grossly intact. PSYCH: Appropriate affect. Alert and oriented to person, place and time. SKIN: Well perfused. Good skin turgor. Extremities left thigh Ze[place] drain in place. Minimal drainage noted on bandage serosanguineous in color. Mild tenderness with palpation. There is still area of firmness on the medial aspect of the incision ASSESSMENT: 1. Cellulitis with abscess left upper medial thigh, 22 x 15 cm 2. History of diabetes type 2 with hyperglycemia, new diagnosis 3. Sepsis due to cellulitis left thigh 4. Failed outpatient antibiotic therapy PLAN: -Patient can be discharged or surgical standpoint -Discharge antibiotics per infectious disease -Continue tight control of blood sugars -Defer to ID service regarding patient returning to work Physician Web [employer] Offset note has been reviewed by physician. Signing provider agrees with the documented findings, assessment, and plan of care. Objective - Vital Signs Vital signs: Vital Signs Temp 98 F 05/30/22 08:00 Pulse 67 05/30/22 08:00 Resp 18 05/30/22 08:00 BP 145/77 05/30/22 08:00 Pulse Ox 99 05/30/22 08:00 FiO2 Intake & Output 05/29/22 05/30/22 05/30/22 18:59 06:59 18:59 Intake Total 118 600 Balance 118 600 Intake: Oral 118 600 Other: # Voids 1 4 - Labs CBC & Chem 7: 05/29/22 06:02 05/30/22 05:00 Labs: Abnormal Lab Results - Last 24 Hours (Table) 05/29/22 05/29/22 05/30/22 Range/Units 17:25 20:55 05:54 POC Glucose (mg/dL) 183 H 228 H 131 H (70-110) mg/dL 05/30/22 Range/Units 11:36 POC Glucose (mg/dL) 129 H (70-110) mg/dL Microbiology - Last 24 Hours (Table) 05/25/22 13:08 Blood Culture - Preliminary Blood No Growth after 120 hours 05/25/22 13:05 Blood Culture - Preliminary Blood No Growth after 120 hours 05/27/22 15:15 Anaerobic Culture - Preliminary Thigh - Left 05/27/22 15:15 Gram Stain - Final Thigh - Left Wound Culture - Final Methicillin resist S. aureus
[2022-05-30] MEDS ORDERED: VANCOMYCIN 2,000 MG in SODIUM CHLORIDE 0.9% 500 ML 500 ML IVPB SCH (18:00)
== END 2022-05-30 16:04 | disposition home health service (06) | DRG 854 ==
LOC: EC 10:04 → 6NMEDSUR 13:29 → OBSVTOIN 05-26 18:08 → 6NMEDSUR 05-28 20:56
PROVIDERS: ADMIT Internal Medicine; ATTEND Internal Medicine
PROC: 0JDM0ZZ Extraction of Left Upper Leg Subcutaneous Tissue and Fascia, Open Approach (ICD-10-PCS; principal; 2022-05-27 08:50)
PROC: 0J9M00Z Drainage of Left Upper Leg Subcutaneous Tissue and Fascia with Drainage Device, Open Approach (ICD-10-PCS; principal; 2022-05-27 08:50)
PROC: 02HV33Z Insertion of Infusion Device into Superior Vena Cava, Percutaneous Approach (ICD-10-PCS; 2022-05-30)
DX: A41.02 Sepsis due to Methicillin resistant Staphylococcus aureus (principal); L02.416 Cutaneous abscess of left lower limb; Z68.41 Body mass index [BMI] 40.0-44.9, adult; L03.116 Cellulitis of left lower limb; E11.65 Type 2 diabetes mellitus with hyperglycemia; E66.01 Morbid (severe) obesity due to excess calories; I10 Essential (primary) hypertension; Z79.84 Long term (current) use of oral hypoglycemic drugs; Z28.311 Partially vaccinated for COVID-19; Z60.2 Problems related to living alone; Z79.899 Other long term (current) drug therapy
CPT/HCPCS: 36415; 36573; 80048; 80053; 80202; 82565; 83036; 83605; 83735; 84145; 85025; 85027; 86140; 87040; 87070; 87075; 87077; 87186; 87205; 96365; 99285